=== PATIENT | female | born 1965 | race Caucasian/White ===

== ENCOUNTER 2023-03-24 09:35 | Outpatient (RCR) | payer MEDICARE, OTHER, SELFPAY | END 2023-03-24 23:59 | disposition home or self-care (01) | LOC: RPT 09:35 | PROVIDERS: ATTENDING PHYSICIAN Orthopaedic Surgery; PRIMARYCARE PHYSICIAN Family Medicine | DX: M25.561 Pain in right knee (principal); Z73.6 Limitation of activities due to disability; R26.89 Other abnormalities of gait and mobility | CPT/HCPCS: 97010; 97110; 97140; 97161 ==

== ENCOUNTER 2023-06-20 12:58 | Emergency (ER) | payer MEDICARE, OTHER, SELFPAY ==
[2023-06-20 13:03] VITALS: BP 166/90
--- NOTE | 2023-06-20 14:18 | ED.GENMED ---
History of Present Illness
General
Chief Complaint: Allergic Reaction
Source: patient
Exam Limitations: none
Time Seen by Provider: 06/20/23 14:06
Travel History
Have you had any contact with someone who has COVID-19?: No
Do you have any symptoms of coronavirus? Fever > 100 degrees, chills, cough, shortness of breath, sore throat, loss of taste or smell, muscle aches, or headache?: No
History of Present Illness
History of Present Illness:
See MDM
Past History
Past History
ED Past Medical History: COPD, CVA (TIA), HTN, Hypercholesterolemia, Psychiatric (Anxiety depression) and Other (Anemia)
ED Past Surgical History: Other (cataracts, Dental Implants)
Patient has exhibited threatening behavior?: No
PSI?: No
Social History
Tobacco: Former smoker
Alcohol: None
Drug: None
Personal: Single
Living: alone
Employment: Not employed
Family History
Family History: Other (AndNoncontributory)
Phy Exam
Physical Exam
Physical Exam:
See MDM
Course
Vital Signs
Initial and Last Documented VS:
Initial Vital Signs
Temp Pulse Resp BP Pulse Ox
98.2 F 77 16 166/90 98
06/20/23 13:03 06/20/23 13:03 06/20/23 13:03 06/20/23 13:03 06/20/23 13:03
Last Documented Vital Signs
Temp Pulse Resp BP Pulse Ox
98.2 F 77 16 166/90 98
06/20/23 13:03 06/20/23 13:03 06/20/23 13:03 06/20/23 13:03 06/20/23 13:03
MDM/Problems Addressed
Differential Diagnosis Includes:
HPI and MDM Narrative:
57-year-old female presenting with concern for allergic reaction. 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 The plan is to start famotidine, obtain a breath test and schedule endoscopy. She started famotidine a few days
ago and she started with a generalized itchy rash. Patient stopped famotidine and is concerned she could be having allergic reaction. She denies vomiting or trouble breathing
On exam, patient is well-appearing nontoxic. Posterior pharynx clear. No evidence of angioedema or anaphylaxis. We discussed the possibility of allergic reaction and discussed cessation of famotidine. She will take her Benadryl as needed and
will discuss case with her PCP and reshipping clerk. She denies any other source of allergic reaction such as new soap or detergent
Physical exam
General: Well appearing and non-toxic
HEENT: protecting airway. Posterior pharynx clear
Neck: appears supple
CV: No evidence of cyanosis
Resp: No accessory muscle use
Abd: Non-distended
Extremities: No deformities
Neuro: alert
Psych: Normal affect
Skin: Intact. Mild erythema to back. No urticaria or cellulitis. Plaque psoriasis noted to elbows and knees
Problems Addressed including Acute and Chronic Conditions affecting care:
1. Adverse drug reaction
Acuity: acute
Prognosis: stable
Details: Discussed cessation of famotidine and taking Benadryl as needed. Patient is comfortable with plan
Differential Diagnosis (but not limited to): Allergic reaction, adverse drug reaction, psoriasis
Drug therapy (if applicable): OTC meds, please see d/c instruction regarding Rx drugs
Amount and/or Complexity of Data Reviewed
Clinical info obtained from: Patient
External data reviewed: N/A
Labs I independently reviewed (but not limited to): N/A
Radiology: N/A
Pulse Ox: not hypoxic
EKG independently reviewed: N/A
Plastic Sewer: N/A
Critical Care: N/A
Risk of Complication:
Social Determinants of health: Good social support
Discussed with other providers: N/A
Escalation of Care includes Admit/Obs: After being observed in the Emergency Department, pt stable for discharge.
Occasional wrong word or 'sound a like' substitutions may have occurred due to the inherent limitations of voice recognition software. Read the chart carefully and recognize, using context, where substitutions have occurred.
*Critical Care Note
Total Time (30-74mins, 75-104mins- exclusive of procedures): Not Applicable
ED Attending Note
-
Portions of this chart may have been created with voice recognition software.� Occasional wrong word or��sound alike� substitutions may have occurred due to the inherent limitations of voice recognition software.
Discharge Plan
Departure
Patient Disposition: Home (Routine Discharge)
Date of Disposition: 06/20/23
Time of Disposition: 14:18
Patient with high blood pressure during this ER visit?: Yes
Discharge Problem:
Adverse drug reaction
Instructions: Adverse Drug Reactions, Adult (DC), BLOOD PRESSURE
Prescriptions:
No Action
clonazepam 1 MG tablet
1 mg PO BID PRN (Reason: anxiety)
Patient Comments:
07/27/2022: last filled 07/09/22, 56 tabs for 28 days from [place]
lisinopril 20 mg tablet
20 mg PO HS
olanzapine 10 mg tablet
10 mg PO DAILY
Rx Instructions:
TAKEN W/ 2.5MG = 12.5MG
olanzapine 2.5 mg tablet
2.5 mg PO DAILY
Rx Instructions:
TAKEN W/ 10MG = 12.5MG
acetaminophen 500 mg Tablet
500 mg PO Q6H PRN (Reason: mild pain/fever)
aspirin 81 mg Tablet,Chewable
81 mg PO DAILY 30 Days Qty: 30 0RF
rosuvastatin 40 mg Tablet
40 mg PO HS 30 Days Qty: 30 0RF
clopidogrel 75 mg Tablet
75 mg PO DAILY 18 Days Qty: 18 0RF
Rx Instructions:
Last day of Plavix 08/16
rizatriptan 5 mg tablet,disintegrating
5 mg PO ONCE PRN (Reason: migraine headache) Qty: 10 0RF
Rx Instructions:
may repeat after 2 hours if headache persists. Do not take more than 5 tabs in 1 day
erythromycin 5 mg/gram (0.5 %) ointment
1 applic ophthalmic (eye) DAILY Qty: 3.5 0RF
naproxen sodium 275 mg tablet
275 mg PO BID Qty: 14 0RF
albuterol sulfate 2.5 mg /3 mL (0.083 %) solution for nebulization
2.5 mg inhalation Q4H PRN (Reason: shortness of breath or wheezing) Qty: 180 0RF
penicillin V potassium 500 mg tablet
500 mg PO QID Qty: 40 0RF
Activity Restrictions/Additional Instructions:
Please return for any worsening symptoms.
You may return at any time if you have further concerns.
Please follow up with your doctor at the first available appointment, preferably this week.
Please avoid famotidine until talking to your reshipping clerk.
Thank you for choosing [facility].
Interventions
Interventions:
*Risk Screen - Suicide Last Done: 06/20/23 13:03
*General Assessment Last Done: 06/20/23 13:03
*Neglect/Abuse Screening Last Done: 06/20/23 13:03
ED- Cardiac Assessment Last Done: 06/20/23 14:14
ED- Pulmonary Assessment Last Done: 06/20/23 14:14
ED-Skin Assessment Last Done: 06/20/23 14:14
== END 2023-06-20 14:29 | disposition home or self-care (01) ==
LOC: EMR 12:58
PROVIDERS: EMERGENCY PHYSICIAN Student in an Organized Health Care Education/Training Program; FAMILY PHYSICIAN Family Medicine
DX: L50.0 Allergic urticaria (principal); T47.0X5A Adverse effect of histamine H2-receptor blockers, initial encounter; R03.0 Elevated blood-pressure reading, without diagnosis of hypertension; Z79.82 Long term (current) use of aspirin; Z88.5 Allergy status to narcotic agent; Z88.8 Allergy status to other drugs, medicaments and biological substances
CPT/HCPCS: 99282

== ENCOUNTER 2023-07-11 11:48 | Emergency (ER) | payer MEDICARE, OTHER, SELFPAY ==
[2023-07-11 11:49] VITALS: BP 144/84
--- NOTE | 2023-07-11 13:53 | ED.GENMED ---
History of Present Illness
General
Chief Complaint: Eye Problems
Source: patient
Time Seen by Provider: 07/11/23 13:37
Travel History
Have you had any contact with someone who has COVID-19?: No
Do you have any symptoms of coronavirus? Fever > 100 degrees, chills, cough, shortness of breath, sore throat, loss of taste or smell, muscle aches, or headache?: No
History of Present Illness
History of Present Illness:
57-year-old female presenting the emergency department for evaluation after awakening around 9:00 with foreign body sensation in her right eye. Patient notes that she has a history of corneal abrasion/ulcerations but she is unable to tell me as to
how she got these as she denies any glasses or contact lens use or any trauma to the eye. She states she was at work yesterday but did not get any substances in her eye. Patient denies any visual disturbances, blurred vision or double vision. She
also is denying any headaches, vomiting or any other concerns.
Past History
Past History
ED Past Medical History: COPD, CVA (TIA), HTN, Hypercholesterolemia, Psychiatric (Anxiety depression) and Other (Anemia)
ED Past Surgical History: Other (cataracts, Dental Implants)
Patient has exhibited threatening behavior?: No
PSI?: No
Social History
Tobacco: Former smoker
Alcohol: None
Drug: None
Personal: Single
Living: alone
Employment: Not employed
Family History
Family History: Other (AndNoncontributory)
Review of Systems
Review of Systems
All Other Systems: ROS reviewed and negative except as documented in HPI and ROS
Phy Exam
Physical Exam
Physical Exam:
GENERAL: Alert , in no apparent distress
EYE: conjunctiva clear, no periorbital edema or ecchymosis or signs of trauma, EOMI, PERRL
Fluorescein stain: Very small uptake 12 o'clock position just above the iris but without foreign body
Tonometry measurements affected right eye measured 21: Unaffected left eye measured 26
Visual acuity: Right eye 20/30, left eye 20/30, both eyes 20/30
Head: Normocephalic atraumatic
NECK: Supple,
ENT: mmm.
LUNGS: no acute respiratory distress
NEUROLOGICAL: Alert and oriented
SKIN: Warm and dry, skin intact.
MUSCULOSKELETAL: well perfused.
PSYCH: Normal and appropriate interaction.
Scores
Heart Failure Risk
Heart Failure Risk Score: Not Applicable
Heart Score for Chest Pain Patients
STEMI patient?: Not applicable
Withdrawal Assessment of Alcohol
Withdrawal Assessment Completed?: Not applicable
Course
Vital Signs
Initial and Last Documented VS:
Initial Vital Signs
Temp Pulse Resp BP Pulse Ox
98.2 F 67 18 144/84 96
07/11/23 11:49 07/11/23 11:49 07/11/23 11:49 07/11/23 11:49 07/11/23 11:49
Last Documented Vital Signs
Temp Pulse Resp BP Pulse Ox
98.2 F 67 18 144/84 96
07/11/23 11:49 07/11/23 11:49 07/11/23 11:49 07/11/23 11:49 07/11/23 11:49
MDM/Problems Addressed
Differential Diagnosis Includes:
Corneal abrasion, corneal ulceration, foreign body, glaucoma, iritis
MDM/Problems Addressed:
57-year-old female presenting emergency department for evaluation of left eye pain and foreign body sensation. Exam is most consistent with a corneal abrasion. Will treat with a topical antibiotic drop. 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 She is aware of her questions emergency department. Stable for discharge home.
*Pulse Oximetry
Patient hypoxic: no
*Critical Care Note
Total Time (30-74mins, 75-104mins- exclusive of procedures): Not Applicable
ED Attending Note
-
Portions of this chart may have been created with voice recognition software.� Occasional wrong word or��sound alike� substitutions may have occurred due to the inherent limitations of voice recognition software.
Discharge Plan
Departure
Patient Disposition: Home (Routine Discharge)
Date of Disposition: 07/11/23
Time of Disposition: 13:53
Patient with high blood pressure during this ER visit?: Yes
Discharge Problem:
Injury of conjunctiva and corneal abrasion of right eye w/o FB
Instructions: Corneal Abrasion (DC)
Prescriptions:
New
ofloxacin 0.3 % drops
2 drp ophthalmic (eye) QID 7 Days Qty: 5 0RF
No Action
clonazepam 1 MG tablet
1 mg PO BID PRN (Reason: anxiety)
Patient Comments:
07/27/2022: last filled 07/09/22, 56 tabs for 28 days from [email or web address]
lisinopril 20 mg tablet
20 mg PO HS
olanzapine 10 mg tablet
10 mg PO DAILY
Rx Instructions:
TAKEN W/ 2.5MG = 12.5MG
olanzapine 2.5 mg tablet
2.5 mg PO DAILY
Rx Instructions:
TAKEN W/ 10MG = 12.5MG
acetaminophen 500 mg Tablet
500 mg PO Q6H PRN (Reason: mild pain/fever)
aspirin 81 mg Tablet,Chewable
81 mg PO DAILY 30 Days Qty: 30 0RF
rosuvastatin 40 mg Tablet
40 mg PO HS 30 Days Qty: 30 0RF
clopidogrel 75 mg Tablet
75 mg PO DAILY 18 Days Qty: 18 0RF
Rx Instructions:
Last day of Plavix 08/16
rizatriptan 5 mg tablet,disintegrating
5 mg PO ONCE PRN (Reason: migraine headache) Qty: 10 0RF
Rx Instructions:
may repeat after 2 hours if headache persists. Do not take more than 5 tabs in 1 day
erythromycin 5 mg/gram (0.5 %) ointment
1 applic ophthalmic (eye) DAILY Qty: 3.5 0RF
naproxen sodium 275 mg tablet
275 mg PO BID Qty: 14 0RF
albuterol sulfate 2.5 mg /3 mL (0.083 %) solution for nebulization
2.5 mg inhalation Q4H PRN (Reason: shortness of breath or wheezing) Qty: 180 0RF
penicillin V potassium 500 mg tablet
500 mg PO QID Qty: 40 0RF
Referrals:
Chato Hilario DO [Family Provider] -
Interventions
Interventions:
*ED COVID-19 Vaccine History Last Done: 07/11/23 11:49
*Nursing Disposition Last Done: 07/11/23 13:59
Discharge Date and Time
Discharge Date/Time: 07/11/23 14:00
Print Language: COLOMBIAN
== END 2023-07-11 14:00 | disposition home or self-care (01) ==
LOC: EMR 11:48
PROVIDERS: EMERGENCY PHYSICIAN Emergency Medicine; FAMILY PHYSICIAN Family Medicine
DX: S05.01XA Injury of conjunctiva and corneal abrasion without foreign body, right eye, initial encounter (principal); X58.XXXA Exposure to other specified factors, initial encounter; R09.A9 Foreign body sensation, other site; J44.9 Chronic obstructive pulmonary disease, unspecified; I10 Essential (primary) hypertension; E78.00 Pure hypercholesterolemia, unspecified; F41.9 Anxiety disorder, unspecified; Z86.73 Personal history of transient ischemic attack (TIA), and cerebral infarction without residual deficits; Z87.891 Personal history of nicotine dependence
CPT/HCPCS: 99282

== ENCOUNTER 2023-08-20 13:00 | Emergency (ER) | payer MEDICARE, OTHER, SELFPAY ==
[2023-08-20 13:04] VITALS: BP 167/94
--- NOTE | 2023-08-20 13:54 | ED.GENMED ---
History of Present Illness
General
Chief Complaint: Skin Problem
Source: patient
Exam Limitations: none
Time Seen by Provider: 08/20/23 13:36
Nursing documentation reviewed up to this point in time: agreed with
Travel History
Have you had any contact with someone who has COVID-19?: No
Do you have any symptoms of coronavirus? Fever > 100 degrees, chills, cough, shortness of breath, sore throat, loss of taste or smell, muscle aches, or headache?: No
History of Present Illness
History of Present Illness:
pt is a 57 y/o F with h/o COPD, HTN,HLD
here after she says she had an 'age spot' treated with liquid nitrogen 3 days ago and it got dark and doubled in size and she is concerned that this is a bad raection to the treatment. she called the office and was given a follow up in a few days
but pt amado anxious about it
she doesn't like the way it looks
Past History
Past History
ED Past Medical History: COPD, CVA (TIA), HTN, Hypercholesterolemia, Psychiatric (Anxiety depression) and Other (Anemia)
ED Past Surgical History: Other (cataracts, Dental Implants)
Patient has exhibited threatening behavior?: No
PSI?: No
Social History
Tobacco: Former smoker
Alcohol: None
Drug: None
Personal: Single
Living: alone
Employment: Not employed
Family History
Family History: Other (AndNoncontributory)
Review of Systems
Review of Systems
Allergies reviewed?: Yes
All Other Systems: Not applicable
Phy Exam
Physical Exam
Physical Exam:
GENERAL: Alert , in no apparent distress, anxious
EYE: pupils equal and reactive
ENT: o/p clr, mmm.
SKIN: Warm and dry, skin intact.
pt has about 4x5mm raised plaque/like lesion hyperpigmented with minimal surroudning trace pink ring that is c/w previoulsy treated cryotherapy spot; to right zygomatic reionn
PSYCH cooperative, no SI., anxious
Course
Vital Signs
Initial and Last Documented VS:
Initial Vital Signs
Temp Pulse Resp BP Pulse Ox
99.0 F 67 18 167/94 98
08/20/23 13:04 08/20/23 13:04 08/20/23 13:04 08/20/23 13:04 08/20/23 13:04
Last Documented Vital Signs
Temp Pulse Resp BP Pulse Ox
99.0 F 67 18 167/94 98
08/20/23 13:04 08/20/23 13:04 08/20/23 13:04 08/20/23 13:04 08/20/23 13:04
MDM/Problems Addressed
Differential Diagnosis Includes:
cryotherapy, skin lesion
MDM/Problems Addressed:
57 y/o F with a skin lesion that was trated with liquid nitrogen, here becuase the area is raised, dark and looks worse than pre-treatment
she has reached out to derm and was told to put aquaphor on it and has appt for next week but sh eis concerned because 'it is an eye sore'
she was not sure if this is the appropriate response to the cryotherapy
pt was reassured that there usually is a blood blister that forms and then falls off
d/c home
no signs of infection
no signs of ulceration
*Critical Care Note
Total Time (30-74mins, 75-104mins- exclusive of procedures): Not Applicable
ED Attending Note
-
Portions of this chart may have been created with voice recognition software.� Occasional wrong word or��sound alike� substitutions may have occurred due to the inherent limitations of voice recognition software.
Discharge Plan
Departure
Patient Disposition: Home (Routine Discharge)
Date of Disposition: 08/20/23
Time of Disposition: 13:58
Patient with high blood pressure during this ER visit?: Yes
Condition: Fair
Covid-19: Not Applicable
Discharge Problem:
Skin lesion
Instructions: Wound Care (DC), BLOOD PRESSURE
Prescriptions:
No Action
clonazepam 1 MG tablet
1 mg PO BID PRN (Reason: anxiety)
Patient Comments:
07/27/2022: last filled 07/09/22, 56 tabs for 28 days from [place]
lisinopril 20 mg tablet
20 mg PO HS
olanzapine 10 mg tablet
10 mg PO DAILY
Rx Instructions:
TAKEN W/ 2.5MG = 12.5MG
olanzapine 2.5 mg tablet
2.5 mg PO DAILY
Rx Instructions:
TAKEN W/ 10MG = 12.5MG
acetaminophen 500 mg Tablet
500 mg PO Q6H PRN (Reason: mild pain/fever)
aspirin 81 mg Tablet,Chewable
81 mg PO DAILY 30 Days Qty: 30 0RF
rosuvastatin 40 mg Tablet
40 mg PO HS 30 Days Qty: 30 0RF
clopidogrel 75 mg Tablet
75 mg PO DAILY 18 Days Qty: 18 0RF
Rx Instructions:
Last day of Plavix 08/16
rizatriptan 5 mg tablet,disintegrating
5 mg PO ONCE PRN (Reason: migraine headache) Qty: 10 0RF
Rx Instructions:
may repeat after 2 hours if headache persists. Do not take more than 5 tabs in 1 day
erythromycin 5 mg/gram (0.5 %) ointment
1 applic ophthalmic (eye) DAILY Qty: 3.5 0RF
naproxen sodium 275 mg tablet
275 mg PO BID Qty: 14 0RF
albuterol sulfate 2.5 mg /3 mL (0.083 %) solution for nebulization
2.5 mg inhalation Q4H PRN (Reason: shortness of breath or wheezing) Qty: 180 0RF
penicillin V potassium 500 mg tablet
500 mg PO QID Qty: 40 0RF
ofloxacin 0.3 % drops
2 drp ophthalmic (eye) QID 7 Days Qty: 5 0RF
Referrals:
Chato Hilario, DO [Family Provider] -
Activity Restrictions/Additional Instructions:
THE SKIN SPOT THAT WAS TREATED WITH LIQUID NITROGEN APPEARS TO HAVE HAD SOME DARKENING/BRUISING WHICH IS TYPICAL FOR A FEW DAYS POST-FREEZING
YOU SHOULD FOLLOW UP WITH THE FINANCIAL SALES PROFESSIONAL
RETURN FO RANY CONCERNS.
Interventions
Interventions:
*Risk Screen - Suicide Last Done: 08/20/23 14:11
*General Assessment Last Done: 08/20/23 13:04
*Neglect/Abuse Screening Last Done: 08/20/23 14:11
ED- Fall Risk Assessment Last Done: 08/20/23 14:11
*ED COVID-19 Vaccine History Last Done: 08/20/23 13:04
*Nursing Disposition Last Done: 08/20/23 14:11
ED-Skin Assessment Last Done: 08/20/23 14:10
Discharge Date and Time
Discharge Date/Time: 08/20/23 14:11
Print Language: SOUTH AFR[place]
== END 2023-08-20 14:11 | disposition home or self-care (01) ==
LOC: EMR 13:00
PROVIDERS: EMERGENCY PHYSICIAN Emergency Medicine; FAMILY PHYSICIAN Family Medicine
DX: L98.9 Disorder of the skin and subcutaneous tissue, unspecified (principal); I10 Essential (primary) hypertension; J44.9 Chronic obstructive pulmonary disease, unspecified; E78.00 Pure hypercholesterolemia, unspecified; Z87.891 Personal history of nicotine dependence
CPT/HCPCS: 99282

== ENCOUNTER 2023-09-19 11:50 | Emergency (ER) | payer MEDICARE, OTHER, SELFPAY ==
[2023-09-19 12:00] VITALS: BP 134/86
[2023-09-19 12:23] VITALS: BMI 30.9
--- NOTE | 2023-09-19 12:55 | ED.MUSCINJ ---
HPI-Injury
General
Chief Complaint: Musculo-Skeletal Complaint
Source: patient
Exam Limitations: none
Time Seen by Provider: 09/19/23 12:43
Nursing documentation reviewed up to this point in time: agreed with
History of Present Illness-Injury
Is this injury a work related problem?: No
Is pt an associate of [facility]/[place]?: No
Initial Injury comments:
Patient to ED with complaint of right posterior chest pain. Started 2 weeks ago and is not improving. Denies fever/chills, n/v/d. No SOB or cough. No prior history of same. Symptoms started approx 1 week after starting weygovy for weight loss
Past History
Past History
ED Past Medical History: COPD, CVA (TIA), HTN, Hypercholesterolemia, Psychiatric (Anxiety depression) and Other (Anemia)
ED Past Surgical History: Other (cataracts, Dental Implants)
Patient has exhibited threatening behavior?: No
PSI?: No
Social History
Tobacco: Former smoker
Alcohol: None
Drug: None
Personal: Single
Living: alone
Employment: Not employed
Family History
Family History: Other (AndNoncontributory)
Review of Systems
Review of Systems
Allergies reviewed?: Yes
All Other Systems: ROS reviewed and negative except as documented in HPI and ROS
Constitutional: Reports no symptoms
EENT: Reports no symptoms
Respiratory: Reports no symptoms
Cardiac: Reports no symptoms
ABD/GI: Reports anorexia
: Reports no symptoms
Musculoskeletal: Reports other (right posterior chest pain)
Skin: Reports no symptoms
Neurological: Reports no symptoms
Psychiatric: Reports no symptoms
Musculoskeletal Injury Exam
Musculoskeletal Injury Exam
Right Upper Back:
Pain with Movement?: None
Tender to palpation?: Moderate
Soft tissue swelling?: None
External deformity and angulation?: None
Joint effusion?: None
Contusion?: None
Hematoma-local bleeding into tissue?: None
Crepitus with movement?: No
Joint instability?: No
Malalignment/deformity?: No
Range of motion: Full
Distal skin color and temperature: normal-warm & good color
Capillary Refill: normal
Normal distal neurovascular exam?: Yes
Phy Exam
General Physical Exam
General Presentation: well appearing and no apparent distress
General age: appears stated age
General Skin: warm and dry
General Habitus: normal
General Mental: alert
Cardiovascular Exam
Cardiovascular Exam: regular rate/rhythm and no edema
Pulmonary Exam
Pulmonary Exam: lungs clear and no respiratory distress
Gastrointestinal Exam
Gastrointestinal Exam: normal bowel sounds, soft, no organomegaly, non distended and no cva tenderness
Palpation: left upper quadrant: No tenderness, left lower quadrant: No tenderness, right upper quadrant: Minimal tenderness and right lower quadrant: No tenderness
Musculoskeletal Exam
Musculoskeletal Exam: full ROM and neuro vasc intact
Skin Exam
Skin Exam: normal color, warm/dry and no rash
Psychiatric Exam
Psychiatric Exam: normal mood/affect
Injury Course
Orders/Labs/Results
Orders:
Orders
09/19/23 12:53
US Abdomen Complete/Upper Urgent
Comment:
Reason For Exam: right upper abd. back pain
09/19/23 12:54
CR Chest - 2 Views Urgent
Comment:
Reason For Exam: right posterior chest pain
09/19/23 13:02
Complete Blood Count/With Diff Urgent
Comprehensive Metabolic Panel Urgent
D-Dimer Urgent
Lipase Urgent
Abnormal Lab Results
09/19/23
13:02
MCH 32.4 H pg
(27.0-31.0)
MPV 10.7 H fL
(7.4-10.4)
D-Dimer 0.53 H ug/mlFEU
(0.00-0.50)
BUN 19 H mg/dl
(7-17)
Lipase 482 H U/L
(23-300)
09/19/23 13:02
09/19/23 13:02
*Radiology
Radiology exam reviewed: radiology read reviewed
*Pulse Oximetry
Patient hypoxic: no
*EKG
Interpretation: normal
Rate: normal
Rhythm: sinus
*Critical Care Note
Total Time (30-74mins, 75-104mins- exclusive of procedures): Not Applicable
Update Note
Update Note:
Patient to ED iwth complaint of 2week history of right upper back pain. Labs reviewed. DDImer .53. Normal results with age adjustment. All other labs acceptable. US normal. Will treat as muscular. Dhe is discharged home, will follow up with
PCP in AM
ED Attending Note
-
Portions of this chart may have been created with voice recognition software.� Occasional wrong word or��sound alike� substitutions may have occurred due to the inherent limitations of voice recognition software.
Discharge Plan
Departure
Patient Disposition: Home (Routine Discharge)
Date of Disposition: 09/19/23
Time of Disposition: 15:22
Patient with high blood pressure during this ER visit?: No
Condition: Good
Covid-19: Not Applicable
Discharge Problem:
Pain, upper back
Instructions: Ibuprofen, Using Cold for Pain, Musculoskeletal Pain
Prescriptions:
New
hydrocodone-acetaminophen 5-325 mg tablet
1 tab PO Q4H PRN (Reason: Pain) Qty: 10 0RF
No Action
clonazepam 1 MG tablet
1 mg PO BID PRN (Reason: anxiety)
Patient Comments:
07/27/2022: last filled 07/09/22, 56 tabs for 28 days from [place]
lisinopril 20 mg tablet
20 mg PO HS
olanzapine 10 mg tablet
10 mg PO DAILY
Rx Instructions:
TAKEN W/ 2.5MG = 12.5MG
olanzapine 2.5 mg tablet
2.5 mg PO DAILY
Rx Instructions:
TAKEN W/ 10MG = 12.5MG
acetaminophen 500 mg Tablet
500 mg PO Q6H PRN (Reason: mild pain/fever)
aspirin 81 mg Tablet,Chewable
81 mg PO DAILY 30 Days Qty: 30 0RF
rosuvastatin 40 mg Tablet
40 mg PO HS 30 Days Qty: 30 0RF
clopidogrel 75 mg Tablet
75 mg PO DAILY 18 Days Qty: 18 0RF
Rx Instructions:
Last day of Plavix 08/16
rizatriptan 5 mg tablet,disintegrating
5 mg PO ONCE PRN (Reason: migraine headache) Qty: 10 0RF
Rx Instructions:
may repeat after 2 hours if headache persists. Do not take more than 5 tabs in 1 day
erythromycin 5 mg/gram (0.5 %) ointment
1 applic ophthalmic (eye) DAILY Qty: 3.5 0RF
naproxen sodium 275 mg tablet
275 mg PO BID Qty: 14 0RF
albuterol sulfate 2.5 mg /3 mL (0.083 %) solution for nebulization
2.5 mg inhalation Q4H PRN (Reason: shortness of breath or wheezing) Qty: 180 0RF
penicillin V potassium 500 mg tablet
500 mg PO QID Qty: 40 0RF
ofloxacin 0.3 % drops
2 drp ophthalmic (eye) QID 7 Days Qty: 5 0RF
Referrals:
Chato Hilario DO [Family Provider] - Follow up in 2-3 days
Interventions
Interventions:
*Risk Screen - Suicide Last Done: 09/19/23 12:23
*General Assessment Last Done: 09/19/23 15:32
*Neglect/Abuse Screening Last Done: 09/19/23 12:23
ED- Fall Risk Assessment Last Done: 09/19/23 12:23
*ED COVID-19 Vaccine History Last Done: 09/19/23 12:23
*Nursing Disposition Last Done: 09/19/23 15:32
ED-Musculoskeletal Assessment Last Done: 09/19/23 12:23
Discharge Date and Time
Discharge Date/Time: 09/19/23 15:33
Print Language: IRISH
[2023-09-19 13:15] LABS: % Basophils 0.3 % (0-2); % Eosinophils 1.3 % (0-6); % Immature Granulocytes 0.1 % (0-0.5); % Lymphocytes 25.3 % (20.5-51.1); % Monocytes 4.8 % (1.7-9.3); % Neutrophils 68.2 % (42.2-75.2); Absolute Eosinophils 0.1 10^3/uL (0-0.7); Absolute Lymphocytes 2.2 10^3/uL (1.2-3.4); Absolute Monocytes 0.4 10^3/uL (0.1-0.6); Absolute Neutrophils 5.9 10^3/uL (1.4-6.5); Hemoglobin 14.4 g/dL (12.0-16.0); Mean Corpuscular Hgb 32.4 pg (27.0-31.0); Mean Corpuscular Volume 89.9 fL (81.0-99.0); Mean Platelet Volume 10.7 fL (7.4-10.4); Nucleated Red Blood Cells % 0 %; Platelet Count 223 10^3/uL (130-400); Red Blood Cell Count 4.45 10^6/uL (4.20-5.40); Red Cell Dist. Width 12.3 % (11.5-14.5); White Blood Cell Count 8.6 10^3/uL (4.8-10.8)
[2023-09-19 13:29] LABS: D-Dimer 0.53 ug/mlFEU (0.00-0.50)
[2023-09-19 13:34] LABS: ALT (SGPT) 35 U/L (0-35); AST (SGOT) 26 U/L (14-36); Alkaline Phosphatase 106 U/L (38-126); Blood Urea Nitrogen 19 mg/dl (7-17); Calcium 10.1 mg/dl (8.4-10.2); Carbon Dioxide 26 mmol/L (22-30); Chloride 107 mmol/L (98-107); Estimated Creatinine Clearance 79 ml/min; Glucose 93 mg/dl (70-99); Lipase 482 U/L (23-300); Potassium 4.6 mmol/L (3.5-5.1); Sodium 143 mmol/L (135-145); Total Bilirubin 0.5 mg/dl (0.2-1.3); Total Protein 7.7 g/dl (6.3-8.2); eGFR > 60.00
[2023-09-19 14:27] LABS: Albumin 4.7 g/dl (3.5-5.0)
[2023-09-19 15:31] VITALS: BP 130/80
== END 2023-09-19 15:33 | disposition home or self-care (01) ==
LOC: EMR 11:50
PROVIDERS: Nurse Practitioner; EMERGENCY PHYSICIAN Emergency Medicine; FAMILY PHYSICIAN Family Medicine
DX: M54.6 Pain in thoracic spine (principal); J44.9 Chronic obstructive pulmonary disease, unspecified; I10 Essential (primary) hypertension; E78.00 Pure hypercholesterolemia, unspecified; F41.8 Other specified anxiety disorders; D64.9 Anemia, unspecified; Z86.73 Personal history of transient ischemic attack (TIA), and cerebral infarction without residual deficits; Z87.891 Personal history of nicotine dependence
CPT/HCPCS: 99284; 71046; 76700; 80053; 83690; 85025; 85379

== ENCOUNTER 2023-09-27 07:20 | Emergency (ER) | payer MEDICARE, OTHER, SELFPAY ==
[2023-09-27 07:30] VITALS: BP 131/88
[2023-09-27 08:00] VITALS: BMI 35.2
--- NOTE | 2023-09-27 08:16 | ED.GENMED ---
History of Present Illness
General
Chief Complaint: Chest Pain
Source: patient
Exam Limitations: none
Time Seen by Provider: 09/27/23 08:06
History of Present Illness
History of Present Illness:
57-year-old female presents with ongoing left chest discomfort. This is been bothering her for 3 days. Its under her left breast. It is a constant ache. Today was worse than usual so she came in. She is under a lot of stress lately. She is
going through some medication changes with her Zyprexa. She thinks her discomfort is stress related however she does note that her brother is just a year or 2 older and her recently had a heart attack. She is followed by cardiology here. She also
notes that her urine smelled somewhat different today. No dysuria or hematuria. No other complaints at this time. Pain is minimal at this time.
Past History
Past History
ED Past Medical History: COPD, CVA (TIA), HTN, Hypercholesterolemia, Psychiatric (Anxiety depression) and Other (Anemia)
ED Past Surgical History: Other (cataracts, Dental Implants)
Patient has exhibited threatening behavior?: No
PSI?: No
Social History
Tobacco: Former smoker
Alcohol: None
Drug: None
Personal: Single
Living: alone
Employment: Not employed
Family History
Family History: Other (AndNoncontributory)
Phy Exam
Physical Exam
Physical Exam:
General: Well-appearing male no acute respiratory distress
HEENT: Normocephalic atraumatic heart: Regular rate and rhythm no murmurs
Lungs: Clear no wheeze or rales
Extremities: No cyanosis or edema skin: Warm no rash
Scores
Heart Score for Chest Pain Patients
STEMI patient?: No
History: Slightly or Non-Suspicious
ECG: Normal
Age: >45 - <65 years
Risk Factors: 1 or 2 Risk Factors
Troponin: </= Normal Limit
Heart Score for Chest Pain Patients: 2
Heart Score Risk: 2.5% MACE over next 6 weeks
Course
Orders/Labs/Results
Orders:
Orders
09/27/23 07:22
ECG [Electrocardiogram (*1)] Urgent
Reason for Study: Chest Pain
09/27/23 07:23
EKG- Treatment ONCE
09/27/23 08:03
CMP [Comprehensive Metabolic Panel] Urgent
Complete Blood Count/With Diff Urgent
Troponin I Urgent
09/27/23 08:15
Urinalysis Reflex To Culture Urgent
Abnormal Lab Results
09/27/23
08:03
MCH 31.9 H pg
(27.0-31.0)
MPV 10.8 H fL
(7.4-10.4)
09/27/23 08:03
09/27/23 08:03
Vital Signs
Initial and Last Documented VS:
Initial Vital Signs
Temp Pulse Resp BP Pulse Ox
98.2 F 96 18 131/88 96
09/27/23 07:30 09/27/23 07:30 09/27/23 07:30 09/27/23 07:30 09/27/23 07:30
Last Documented Vital Signs
Temp Pulse Resp BP Pulse Ox
98.2 F 96 18 131/88 96
09/27/23 07:30 09/27/23 07:30 09/27/23 07:30 09/27/23 07:30 09/27/23 07:30
MDM/Problems Addressed
Differential Diagnosis Includes:
Chest discomfort ongoing. Consider ACS. She was here about a month ago which I reviewed the records from. She had a D-dimer which was within normal limits for age-adjusted range. Do not suspect PE as patient has normal vital signs and pain is
not pleuritic.
Troponin pending. EKG urinalysis pending
EKG shows sinus rhythm with a rate of 71
*Critical Care Note
Total Time (30-74mins, 75-104mins- exclusive of procedures): Not Applicable
Update Note
Update Note:
Workup here negative with troponin undetectable. Patient resting comfortably. Patient unable to provide urine sample. She also she has to leave the emergency room for an appointment she has not let up EVALI for potential medication change. I
think this is important for her moving forward. No indication for admission to hospital but given family history of cardiac disease and chest pain presentation, will refer to chest pain hotline. Symptoms have been going on for several days. 1
troponin is sufficient with atypical presentation. No need for repeat troponin at this time
ED Attending Note
-
Portions of this chart may have been created with voice recognition software.� Occasional wrong word or��sound alike� substitutions may have occurred due to the inherent limitations of voice recognition software.
Discharge Plan
Departure
Patient Disposition: Home (Routine Discharge)
Date of Disposition: 09/27/23
Time of Disposition: 08:53
Patient with high blood pressure during this ER visit?: No
Discharge Problem:
Chest pain
Instructions: Chest Pain CBC Follow Up
Prescriptions:
No Action
clonazepam 1 mg Tablet
1 mg PO BID PRN (Reason: anxiety)
Patient Comments:
09/27/2023, pt. took 3 tablets yesterday but it is normally BIDPRN.
Aquaphor Ointment
1 applic TOPICAL HSPRN PRN (Reason: B/L knees and elbows)
acetaminophen [Tylenol Extra Strength] 500 mg Tablet
1,000 mg PO DAILYPRN PRN (Reason: mild pain)
docusate sodium [Colace] 100 mg Capsule
100 mg PO DAILY PRN (Reason: constipation)
olanzapine 15 mg Tablet
15 mg PO DAILY
lisinopril 40 mg Tablet
40 mg PO HS
Patient Comments:
09/27/2023, pharmacy records have pt. filling 20 mg but [facility] records from 04/21/2023 have pt. taking 40 mg. Pt. states to be taking 40 mg. Pt. filled 20 mg on 07/12/2023 for 90-day supply.
rosuvastatin 40 mg Tablet
40 mg PO HS
melatonin 1 mg Tablet
1 mg PO HS PRN (Reason: sleep)
Wegovy 0.5 mg/0.5 mL Pen Injector
0.5 mg SC WE@0800
Referrals:
Chato Hilario, [Family Provider] -
Activity Restrictions/Additional Instructions:
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
Interventions
Interventions:
*Risk Screen - Suicide Last Done: 09/27/23 07:30
*General Assessment Last Done: 09/27/23 07:30
*Neglect/Abuse Screening Last Done: 09/27/23 07:30
Discharge Date and Time
Print Language: MEXICAN
[2023-09-27 08:21] LABS: % Basophils 0.5 % (0-2); % Immature Granulocytes 0.4 % (0-0.5); % Lymphocytes 27.1 % (20.5-51.1); % Monocytes 7.2 % (1.7-9.3); % Neutrophils 62.8 % (42.2-75.2); Absolute Eosinophils 0.2 10^3/uL (0-0.7); Absolute Lymphocytes 2.3 10^3/uL (1.2-3.4); Absolute Monocytes 0.6 10^3/uL (0.1-0.6); Absolute Neutrophils 5.4 10^3/uL (1.4-6.5); Hematocrit 39.2 % (37.0-47.0); Hemoglobin 13.6 g/dL (12.0-16.0); Mean Corp Hgb Conc. 34.7 g/dL (33.0-37.0); Mean Corpuscular Hgb 31.9 pg (27.0-31.0); Mean Corpuscular Volume 91.8 fL (81.0-99.0); Mean Platelet Volume 10.8 fL (7.4-10.4); Nucleated Red Blood Cells % 0 %; Platelet Count 207 10^3/uL (130-400); Red Blood Cell Count 4.27 10^6/uL (4.20-5.40); Red Cell Dist. Width 11.9 % (11.5-14.5); White Blood Cell Count 8.5 10^3/uL (4.8-10.8)
[2023-09-27 08:35] LABS: ALT (SGPT) 29 U/L (0-35); AST (SGOT) 22 U/L (14-36); Albumin 4.4 g/dl (3.5-5.0); Alkaline Phosphatase 96 U/L (38-126); Blood Urea Nitrogen 15 mg/dl (7-17); Calcium 9.8 mg/dl (8.4-10.2); Carbon Dioxide 28 mmol/L (22-30); Chloride 107 mmol/L (98-107); Estimated Creatinine Clearance 85 ml/min; Glucose 86 mg/dl (70-99); Potassium 3.9 mmol/L (3.5-5.1); Sodium 142 mmol/L (135-145); Total Bilirubin 0.4 mg/dl (0.2-1.3); eGFR > 60.00
[2023-09-27 08:47] LABS: Troponin I < 0.012 ng/ml
== END 2023-09-27 09:07 | disposition home or self-care (01) ==
LOC: EMR 07:20
PROVIDERS: EMERGENCY PHYSICIAN Emergency Medicine; FAMILY PHYSICIAN Family Medicine
DX: R07.89 Other chest pain (principal); Z73.3 Stress, not elsewhere classified; I10 Essential (primary) hypertension; E78.00 Pure hypercholesterolemia, unspecified; J44.9 Chronic obstructive pulmonary disease, unspecified; F41.9 Anxiety disorder, unspecified; F32.A Depression, unspecified; D64.9 Anemia, unspecified; Z87.891 Personal history of nicotine dependence; Z86.73 Personal history of transient ischemic attack (TIA), and cerebral infarction without residual deficits; Z82.49 Family history of ischemic heart disease and other diseases of the circulatory system; Z88.5 Allergy status to narcotic agent; Z88.8 Allergy status to other drugs, medicaments and biological substances
CPT/HCPCS: 99283; 80053; 84484; 85025; 93005

== ENCOUNTER → 2023-10-07 06:35 | Outpatient (REF) | payer MEDICARE, OTHER, SELFPAY ==
[2023-10-07 07:42] LABS: % Basophils 0.7 % (0-2); % Eosinophils 2.9 % (0-6); % Immature Granulocytes 0.3 % (0-0.5); % Lymphocytes 28.9 % (20.5-51.1); % Monocytes 6.9 % (1.7-9.3); % Neutrophils 60.3 % (42.2-75.2); Absolute Basophils 0.1 10^3/uL (0-0.2); Absolute Eosinophils 0.2 10^3/uL (0-0.7); Absolute Lymphocytes 2.2 10^3/uL (1.2-3.4); Absolute Monocytes 0.5 10^3/uL (0.1-0.6); Absolute Neutrophils 4.6 10^3/uL (1.4-6.5); Hematocrit 39.2 % (37.0-47.0); Hemoglobin 13.9 g/dL (12.0-16.0); Mean Corp Hgb Conc. 35.5 g/dL (33.0-37.0); Mean Corpuscular Hgb 32.9 pg (27.0-31.0); Mean Corpuscular Volume 92.9 fL (81.0-99.0); Mean Platelet Volume 11.3 fL (7.4-10.4); Nucleated Red Blood Cells % 0 %; Platelet Count 201 10^3/uL (130-400); Red Blood Cell Count 4.22 10^6/uL (4.20-5.40); Red Cell Dist. Width 12.2 % (11.5-14.5); White Blood Cell Count 7.7 10^3/uL (4.8-10.8)
[2023-10-07 08:03] LABS: Urine Albumin Negative (Neg - Trace); Urine Bilirubin Negative (Negative); Urine Character Clear (Clear); Urine Color Yellow; Urine Glucose Negative (Negative); Urine Ketone Negative (Negative); Urine Leukocyte 1+ (Negative); Urine Nitrite Negative (Negative); Urine Occult Blood Negative (Negative); Urine Urobilinogen Negative (Neg - 1+)
[2023-10-07 08:12] LABS: ALT (SGPT) 31 U/L (0-35); AST (SGOT) 22 U/L (14-36); Albumin 4.3 g/dl (3.5-5.0); Alkaline Phosphatase 90 U/L (38-126); Amylase 68 U/L (30-110); Blood Urea Nitrogen 13 mg/dl (7-17); Calcium 9.6 mg/dl (8.4-10.2); Carbon Dioxide 28 mmol/L (22-30); Chloride 105 mmol/L (98-107); Glucose 86 mg/dl (70-99); HDL Cholesterol 48 mg/dl; LDL Cholesterol, Calculated 99 mg/dl; Lipase 82 U/L (23-300); Sodium 141 mmol/L (135-145); Total Bilirubin 0.5 mg/dl (0.2-1.3); Total Cholesterol 164 mg/dl (50-199); Total Protein 6.7 g/dl (6.3-8.2); Triglyceride 85 mg/dl (10-149); Very Low Density Lipoprotein 17 mg/dl (0-30); eGFR > 60.00
[2023-10-07 08:53] LABS: TSH 1.07 uIU/ml (0.47-4.68)
[2023-10-07 10:50] LABS: Glycohemoglobin (HgbA1c) 5.2 % (4.0-5.6)
[2023-10-07 11:51] LABS: Urine Squamous Cell >30 /LPF (Few)
[2023-10-07 11:53] LABS: Urine Red Blood Cell 0-2 /HPF (0-2); Urine White Cell 21-25 /HPF (0-5)
== END ==
LOC: WDC 06:35
PROVIDERS: ATTENDING PHYSICIAN Nurse Practitioner Family
DX: Z12.31 Encounter for screening mammogram for malignant neoplasm of breast (principal); I10 Essential (primary) hypertension; E78.2 Mixed hyperlipidemia; R73.01 Impaired fasting glucose; R10.13 Epigastric pain; R53.83 Other fatigue; E03.9 Hypothyroidism, unspecified; E11.9 Type 2 diabetes mellitus without complications; N39.0 Urinary tract infection, site not specified
CPT/HCPCS: 36415; 77063; 77067; 80053; 80061; 81003; 81015; 82150; 83036; 83690; 84439; 84443; 85025; 87086

== ENCOUNTER → 2023-10-08 13:01 | Outpatient (REF) | payer MEDICARE, OTHER, SELFPAY | LOC: RAD 13:01 | PROVIDERS: ATTENDING PHYSICIAN Surgery; FAMILY PHYSICIAN Family Medicine | DX: N28.89 Other specified disorders of kidney and ureter (principal); N13.30 Unspecified hydronephrosis | CPT/HCPCS: 74178; Q9967 ==

== ENCOUNTER → 2023-11-04 08:55 | Outpatient (REF) | payer MEDICARE, OTHER, SELFPAY ==
[2023-11-04 11:14] LABS: Amylase 75 U/L (30-110); Lipase 104 U/L (23-300)
== END ==
LOC: REG 08:55
PROVIDERS: ATTENDING PHYSICIAN Nurse Practitioner Family
DX: R10.13 Epigastric pain (principal)
CPT/HCPCS: 36415; 82150; 83690

== ENCOUNTER 2023-11-17 11:38 | Emergency (ER) | payer MEDICARE, OTHER, SELFPAY ==
[2023-11-17 11:42] VITALS: BP 159/85
[2023-11-17 12:40] LABS: % Basophils 0.4 % (0-2); % Eosinophils 3.2 % (0-6); % Immature Granulocytes 0.3 % (0-0.5); % Lymphocytes 24.8 % (20.5-51.1); % Neutrophils 64.3 % (42.2-75.2); Absolute Eosinophils 0.2 10^3/uL (0-0.7); Absolute Lymphocytes 1.8 10^3/uL (1.2-3.4); Absolute Monocytes 0.5 10^3/uL (0.1-0.6); Absolute Neutrophils 4.7 10^3/uL (1.4-6.5); Hematocrit 38.1 % (37.0-47.0); Hemoglobin 13.8 g/dL (12.0-16.0); Mean Corp Hgb Conc. 36.2 g/dL (33.0-37.0); Mean Corpuscular Hgb 33.2 pg (27.0-31.0); Mean Corpuscular Volume 91.6 fL (81.0-99.0); Mean Platelet Volume 11.2 fL (7.4-10.4); Nucleated Red Blood Cells % 0 %; Platelet Count 190 10^3/uL (130-400); Red Blood Cell Count 4.16 10^6/uL (4.20-5.40); Red Cell Dist. Width 12.1 % (11.5-14.5); White Blood Cell Count 7.3 10^3/uL (4.8-10.8)
--- NOTE | 2023-11-17 12:49 | ED.GENMED ---
History of Present Illness
General
Chief Complaint: Chest Pain
Source: patient
Time Seen by Provider: 11/17/23 12:39
History of Present Illness
History of Present Illness:
58yoF with a history of hypertension, hyperlipidemia, obesity, and anxiety presenting for evaluation after episode of chest discomfort. Patient was at work 4 days ago. 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 She was
in the elevator when she started to experience chest tightness. She also states that her jaw 'locked up.' Her jaw symptoms resolved after about 10 to 15 minutes and her chest tightness resolved after about an hour. There was no associated nausea,
dizziness, syncope, or diaphoresis during this episode. She denies any further chest pain although reports extreme fatigue. She is unsure if her symptoms are related to anxiety. She denies any known history of heart disease. She follows with
cardiology, Dr. Guerar, and had a stress test in 2020 which was reportedly normal.
Past History
Past History
ED Past Medical History: COPD, CVA (TIA), HTN, Hypercholesterolemia, Psychiatric (Anxiety depression) and Other (Anemia)
ED Past Surgical History: Other (cataracts, Dental Implants)
Patient has exhibited threatening behavior?: No
PSI?: No
Social History
Tobacco: Former smoker
Alcohol: None
Drug: None
Personal: Single
Living: alone
Employment: Not employed
Family History
Family History: Other (AndNoncontributory)
Phy Exam
General Physical Exam
General Presentation: well appearing
General age: appears stated age
General Skin: warm and dry
General Habitus: normal
General Mental: alert
Cardiovascular Exam
Cardiovascular Exam: regular rate/rhythm and no edema
Pulmonary Exam
Pulmonary Exam: lungs clear, no respiratory distress, no crackles and no wheezing
[place] Coma Scale
Eye Opening: Spontaneous
Verbal Response: Oriented
Motor Response: Obeys Commands
GCS Total Score: 15
Skin Exam
Skin Exam: normal color and warm/dry
Psychiatric Exam
Psychiatric Exam: normal mood/affect
Scores
Heart Score for Chest Pain Patients
STEMI patient?: Not applicable
Course
Orders/Labs/Results
Orders:
Orders
11/17/23 11:44
ECG [Electrocardiogram (*1)] Urgent
Reason for Study: Chest Pain
EKG- Treatment ONCE
11/17/23 11:56
CR Chest - 2 Views Urgent
Comment:
Reason For Exam: chest pain
11/17/23 12:00
Complete Blood Count/With Diff Urgent
Comprehensive Metabolic Panel Urgent
Troponin I Urgent
Abnormal Lab Results
11/17/23
12:00
RBC 4.16 L 10^6/uL
(4.20-5.40)
MCH 33.2 H pg
(27.0-31.0)
MPV 11.2 H fL
(7.4-10.4)
11/17/23 12:00
11/17/23 12:00
Vital Signs
Initial and Last Documented VS:
Initial Vital Signs
Temp Pulse Resp BP Pulse Ox
99.1 F 81 18 159/85 96
11/17/23 11:42 11/17/23 11:42 11/17/23 11:42 11/17/23 11:42 11/17/23 11:42
Last Documented Vital Signs
Temp Pulse Resp BP Pulse Ox
99.1 F 83 20 161/74 96
11/17/23 11:42 11/17/23 13:49 11/17/23 13:49 11/17/23 13:49 11/17/23 13:49
MDM/Problems Addressed
Differential Diagnosis Includes:
58yoF here after an episode of chest tightness and jaw locking 4 days ago. No further chest discomfort but she is experiencing fatigue. She is afebrile and hemodynamically stable. She is well appearing in no distress. Exam is reassuring.
Differential diagnosis includes but is not limited to: ACS, arrhythmia, pneumonia, anxiety
Initial ED plan: Check cardiac labs, EKG, and CXR.
*EKG
Interpreted by ED Provider?: Yes
EKG Intrepretation Date: 11/17/23
Heart Rate: 71
Rate: normal
Rhythm: sinus
[place]: normal axis
Interval: normal interval
QRS Pattern: normal QRS
Ischemia: no ischemia
*Critical Care Note
Total Time (30-74mins, 75-104mins- exclusive of procedures): Not Applicable
Update Note
Update Note:
Workup unremarkable. EKG shows NSR without ischemic changes. Troponin WNL. CXR is clear. HEART score is 3. No indication for admission. Advised f/u with PCP and cardiology. ED return precautions discussed. Patient expressed understanding and is
agreeable to plan. Patient discharged in stable condition.
ED Attending Note
-
Portions of this chart may have been created with voice recognition software.� Occasional wrong word or��sound alike� substitutions may have occurred due to the inherent limitations of voice recognition software.
Discharge Plan
Departure
Patient Disposition: Home (Routine Discharge)
Date of Disposition: 11/17/23
Time of Disposition: 14:17
Patient with high blood pressure during this ER visit?: Yes
Discharge Problem:
Chest pain
Instructions: Chest Pain CBC Follow Up
Prescriptions:
No Action
clonazepam 1 mg Tablet
1 mg PO BID PRN (Reason: anxiety)
Patient Comments:
09/27/2023, pt. took 3 tablets yesterday but it is normally BIDPRN.
Aquaphor Ointment
1 applic TOPICAL HSPRN PRN (Reason: B/L knees and elbows)
acetaminophen [Tylenol Extra Strength] 500 mg Tablet
1,000 mg PO DAILYPRN PRN (Reason: mild pain)
docusate sodium [Colace] 100 mg Capsule
100 mg PO DAILY PRN (Reason: constipation)
olanzapine 15 mg Tablet
15 mg PO DAILY
lisinopril 40 mg Tablet
40 mg PO HS
Patient Comments:
09/27/2023, pharmacy records have pt. filling 20 mg but [facility] records from 04/21/2023 have pt. taking 40 mg. Pt. states to be taking 40 mg. Pt. filled 20 mg on 07/12/2023 for 90-day supply.
rosuvastatin 40 mg Tablet
40 mg PO HS
melatonin 1 mg Tablet
1 mg PO HS PRN (Reason: sleep)
Wegovy 0.5 mg/0.5 mL Pen Injector
0.5 mg SC WE@0800
Referrals:
Chato Hilario DO [Family Provider] -
Jj Guerra MD [Active] -
Activity Restrictions/Additional Instructions:
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 Return to the ER with any new or worsening symptoms.
Interventions
Interventions:
*Risk Screen - Suicide Last Done: 11/17/23 11:55
*General Assessment Last Done: 11/17/23 11:55
*Neglect/Abuse Screening Last Done: 11/17/23 11:55
ED- Fall Risk Assessment Last Done: 11/17/23 11:55
*Nursing Disposition Last Done: 11/17/23 14:30
ED- Cardiac Assessment Last Done: 11/17/23 11:55
Discharge Date and Time
Discharge Date/Time: 11/17/23 15:24
Print Language: [place]
[2023-11-17 12:57] LABS: ALT (SGPT) 27 U/L (0-35); AST (SGOT) 23 U/L (14-36); Alkaline Phosphatase 86 U/L (38-126); Blood Urea Nitrogen 12 mg/dl (7-17); Calcium 9.4 mg/dl (8.4-10.2); Carbon Dioxide 27 mmol/L (22-30); Chloride 107 mmol/L (98-107); Glucose 81 mg/dl (70-99); Potassium 4.3 mmol/L (3.5-5.1); Sodium 138 mmol/L (135-145); Total Bilirubin 0.4 mg/dl (0.2-1.3); Total Protein 6.5 g/dl (6.3-8.2); eGFR > 60.00
[2023-11-17 13:04] LABS: Troponin I < 0.012 ng/ml
[2023-11-17 13:49] VITALS: BP 161/74
== END 2023-11-17 15:24 | disposition home or self-care (01) ==
LOC: EMR 11:38
PROVIDERS: Emergency Medicine; EMERGENCY PHYSICIAN Student in an Organized Health Care Education/Training Program; FAMILY PHYSICIAN Family Medicine
DX: R07.89 Other chest pain (principal); R53.83 Other fatigue; I10 Essential (primary) hypertension; E78.00 Pure hypercholesterolemia, unspecified; J44.9 Chronic obstructive pulmonary disease, unspecified; F41.9 Anxiety disorder, unspecified; F32.A Depression, unspecified; D64.9 Anemia, unspecified; Z86.73 Personal history of transient ischemic attack (TIA), and cerebral infarction without residual deficits; Z87.891 Personal history of nicotine dependence; E66.9 Obesity, unspecified; Z88.5 Allergy status to narcotic agent; Z88.8 Allergy status to other drugs, medicaments and biological substances
CPT/HCPCS: 99283; 71046; 80053; 84484; 85025; 93005

== ENCOUNTER → 2023-12-14 07:14 | Outpatient (REF) | payer MEDICARE, OTHER, SELFPAY | LOC: RCS 07:14 | PROVIDERS: ATTENDING PHYSICIAN Nurse Practitioner; FAMILY PHYSICIAN Family Medicine | DX: R07.89 Other chest pain (principal); R53.83 Other fatigue; I10 Essential (primary) hypertension; R06.83 Snoring | CPT/HCPCS: 93017 ==

== ENCOUNTER 2023-12-22 12:05 | Emergency (ER) | payer MEDICARE, OTHER, SELFPAY ==
[2023-12-22 12:06] VITALS: BMI 32.6
[2023-12-22 12:11] VITALS: BP 133/101
[2023-12-22 12:32] LABS: % Basophils 0.6 % (0-2); % Eosinophils 3.5 % (0-6); % Immature Granulocytes 0.1 % (0-0.5); % Lymphocytes 29.8 % (20.5-51.1); % Monocytes 7.4 % (1.7-9.3); % Neutrophils 58.6 % (42.2-75.2); Absolute Eosinophils 0.2 10^3/uL (0-0.7); Absolute Lymphocytes 2.1 10^3/uL (1.2-3.4); Absolute Monocytes 0.5 10^3/uL (0.1-0.6); Hematocrit 38.4 % (37.0-47.0); Hemoglobin 13.7 g/dL (12.0-16.0); Mean Corp Hgb Conc. 35.7 g/dL (33.0-37.0); Mean Corpuscular Hgb 31.9 pg (27.0-31.0); Mean Corpuscular Volume 89.5 fL (81.0-99.0); Mean Platelet Volume 10.6 fL (7.4-10.4); Nucleated Red Blood Cells % 0 %; Platelet Count 222 10^3/uL (130-400); Red Blood Cell Count 4.29 10^6/uL (4.20-5.40); White Blood Cell Count 6.9 10^3/uL (4.8-10.8)
[2023-12-22 12:48] LABS: ALT (SGPT) 27 U/L (0-35); AST (SGOT) 24 U/L (14-36); Albumin 4.1 g/dl (3.5-5.0); Alkaline Phosphatase 92 U/L (38-126); Blood Urea Nitrogen 12 mg/dl (7-17); Calcium 9.5 mg/dl (8.4-10.2); Carbon Dioxide 24 mmol/L (22-30); Chloride 105 mmol/L (98-107); Glucose 89 mg/dl (70-99); Potassium 4.2 mmol/L (3.5-5.1); Sodium 143 mmol/L (135-145); Total Bilirubin 0.4 mg/dl (0.2-1.3); Total Protein 6.6 g/dl (6.3-8.2); eGFR > 60.00
[2023-12-22 13:21] VITALS: BP 148/93
--- NOTE | 2023-12-22 14:15 | ED.GENMED ---
History of Present Illness
General
Chief Complaint: Headache
Time Seen by Provider: 12/22/23 13:05
History of Present Illness
History of Present Illness:
58-year-old female with history of TIA presenting to the emergency department for right-sided headache. Patient reports since 4 PM yesterday she has been having intermittent pain in the right frontal aspect of her head. She reports that she gets a
sharp shooting pain that lasts a few seconds about every 20 minutes. Denies any weakness or numbness to her extremities. Denies any visual changes or speech changes. She has not tried any medications for the headache. Denies fever. Denies chest
pain or difficulty breathing. Denies abdominal pain or GI symptoms. She was concern for TIA, which brought her to the emergency department. Denies additional acute medical complaints
Past History
Past History
ED Past Medical History: COPD, CVA (TIA), HTN, Hypercholesterolemia, Psychiatric (Anxiety depression) and Other (Anemia)
ED Past Surgical History: Other (cataracts, Dental Implants)
Patient has exhibited threatening behavior?: No
PSI?: No
Social History
Tobacco: Former smoker
Alcohol: None
Drug: None
Personal: Single
Living: alone
Employment: Not employed
Family History
Family History: Other (AndNoncontributory)
Phy Exam
Physical Exam
Physical Exam:
General: Well-appearing, no clinical signs of dehydration, nontoxic and in no acute distress
HEENT: protecting airway
Neck: appears supple
CV: Normal heart rate, regular rhythm
Resp: No accessory muscle use, no increased work of breathing, lungs clear to auscultation bilaterally
Abd: Soft and non-distended, no tenderness to palpation
Extremities: No deformities, no swelling, no erythema
Neuro: alert, no focal neurologic deficit
: deferred
Rectal: deferred
Psych: Normal affect
Skin: Intact
Scores
NIH Stroke Score
Level of Consciousness: 0 - Alert
LOC Questions: 0-Answers both correctly
LOC Commands: 0-Performs both correctly
Best Horizontal Gaze: 0-Normal
Visual Flowers: 0=Normal, no visual loss
Facial Palsy: 0=Normal, symmetrical
Motor - Right Arm: 0=No drift 10 seconds
Motor - Left Arm: 0=No drift 10 seconds
Motor - Right Le-No drift 5 seconds
Motor - Left Le-No drift 5 seconds
Limb Ataxia: 0-Absent
Sensation: 0-Normal
Best Language: 0-No aphasia
Dysarthria: 0-Normal
Extinction and Inattention: 0-No abnormality
Total Score:: 0
Course
Orders/Labs/Results
Orders:
Orders
12/22/23 12:[address] [CT Head W/o Iv Contrast] Urgent
Comment:
Reason For Exam: headache
12/22/23 12:22
Complete Blood Count/With Diff Urgent
Comprehensive Metabolic Panel Urgent
12/22/23 13:55
Acetaminophen [Tylenol] 1,000 mg PO NOW STA
Abnormal Lab Results
12/22/23
12:22
MCH 31.9 H pg
(27.0-31.0)
MPV 10.6 H fL
(7.4-10.4)
12/22/23 12:22
12/22/23 12:22
Vital Signs
Initial and Last Documented VS:
Initial Vital Signs
Temp Pulse Resp BP Pulse Ox
98.1 F 77 18 133/101 97
12/22/23 12:11 12/22/23 12:11 12/22/23 12:11 12/22/23 12:11 12/22/23 12:11
Last Documented Vital Signs
Temp Pulse Resp BP Pulse Ox
98.1 F 74 17 148/93 97
12/22/23 13:20 12/22/23 13:22 12/22/23 13:22 12/22/23 13:21 12/22/23 12:11
MDM/Problems Addressed
MDM/Problems Addressed:
58-year-old female with history of TIA presenting for right-sided headache. Vital signs are normal.
On exam, patient in no acute distress, nontoxic. Unremarkable neurologic exam, no focal neurologic deficits. NIH of 0. At this time for TIA or CVA. Patient symptoms do not appear consistent with strokelike symptoms. Suspect migrainous versus
tension headache. Patient notes she is on Wegovy, possible dehydration component. Patient had screening laboratory analysis and CT brain prior to my assessment, pending CT brain read. Labs unremarkable.
14:20 - CT without acute intracranial abnormality. Tylenol administered for patient's headache. Patient otherwise remains hemodynamically stable. At this time feel that she is stable for discharge with close interval follow-up with her doctor.
Return precautions discussed and patient verbalized understanding
*Critical Care Note
Total Time (30-74mins, 75-104mins- exclusive of procedures): Not Applicable
ED Attending Note
-
Portions of this chart may have been created with voice recognition software.� Occasional wrong word or��sound alike� substitutions may have occurred due to the inherent limitations of voice recognition software.
Discharge Plan
Departure
Patient Disposition: Home (Routine Discharge)
Date of Disposition: 12/22/23
Time of Disposition: 14:23
Patient with high blood pressure during this ER visit?: No
Condition: Good
Discharge Problem:
Acute tension headache
Instructions: Headache, Adult (DC)
Prescriptions:
No Action
clonazepam 1 mg Tablet
1 mg PO BID PRN (Reason: anxiety)
Patient Comments:
09/27/2023, pt. took 3 tablets yesterday but it is normally BIDPRN.
Aquaphor Ointment
1 applic TOPICAL HSPRN PRN (Reason: B/L knees and elbows)
acetaminophen [Tylenol Extra Strength] 500 mg Tablet
1,000 mg PO DAILYPRN PRN (Reason: mild pain)
docusate sodium [Colace] 100 mg Capsule
100 mg PO DAILY PRN (Reason: constipation)
olanzapine 15 mg Tablet
15 mg PO DAILY
lisinopril 40 mg Tablet
40 mg PO HS
Patient Comments:
09/27/2023, pharmacy records have pt. filling 20 mg but [facility] records from 04/21/2023 have pt. taking 40 mg. Pt. states to be taking 40 mg. Pt. filled 20 mg on 07/12/2023 for 90-day supply.
rosuvastatin 40 mg Tablet
40 mg PO HS
melatonin 1 mg Tablet
1 mg PO HS PRN (Reason: sleep)
Wegovy 0.5 mg/0.5 mL Pen Injector
0.5 mg SC WE@0800
Referrals:
Chato Hilario DO [Family Provider] -
Activity Restrictions/Additional Instructions:
You were seen in the emergency department for headache
You were found to have normal laboratory analysis and CT imaging of your brain
Please follow-up closely with your primary care physician.
Return to the emergency department for any worsening of your symptoms, or any development of chest pain, difficulty breathing, abdominal pain with persistent vomiting and inability to tolerate food or liquid by mouth (concern for dehydration),
weakness or numbness to her extremities, headache or confusion, fever greater than 100.4, or any additional symptoms that are concerning to you.
Thank you for choosing [facility].
Interventions
Interventions:
*Risk Screen - Suicide Last Done: 12/22/23 12:11
*General Assessment Last Done: 12/22/23 12:11
*Neglect/Abuse Screening Last Done: 12/22/23 12:11
*ED COVID-19 Vaccine History Last Done: 12/22/23 13:18
ED- Cardiac Assessment Last Done: 12/22/23 13:22
ED- Neurological Assessment Last Done: 12/22/23 13:22
ED- Pulmonary Assessment Last Done: 12/22/23 13:22
ED Swallowing Screen Last Done: 12/22/23 13:23
Discharge Date and Time
Print Language: [place]
[2023-12-22] MEDS: TYLENOL 1000 MG PO (14:35)
[2023-12-22 14:38] VITALS: BP 150/80
== END 2023-12-22 14:48 | disposition home or self-care (01) ==
LOC: EMR 12:05
PROVIDERS: Emergency Medicine; EMERGENCY PHYSICIAN Student in an Organized Health Care Education/Training Program; FAMILY PHYSICIAN Family Medicine
DX: G44.209 Tension-type headache, unspecified, not intractable (principal); I10 Essential (primary) hypertension; J44.9 Chronic obstructive pulmonary disease, unspecified; E78.00 Pure hypercholesterolemia, unspecified; F41.9 Anxiety disorder, unspecified; D64.9 Anemia, unspecified; F32.A Depression, unspecified; Z86.73 Personal history of transient ischemic attack (TIA), and cerebral infarction without residual deficits; Z87.891 Personal history of nicotine dependence; Z88.5 Allergy status to narcotic agent; Z88.8 Allergy status to other drugs, medicaments and biological substances
CPT/HCPCS: 99284; 70450; 80053; 85025

== ENCOUNTER 2023-12-27 23:21 | Emergency (ER) | payer MEDICARE, OTHER, SELFPAY ==
[2023-12-27 23:28] VITALS: BP 154/82; BMI 34.1
[2023-12-27] MEDS: MOTRIN 400 MG PO (23:59)
[2023-12-28] VITALS: BP 126/69
[2023-12-28 00:47] VITALS: BP 132/82
--- NOTE | 2023-12-28 00:56 | ED.GENMED ---
History of Present Illness
General
Chief Complaint: Musculo-Skeletal Complaint
Source: patient
Exam Limitations: none
Time Seen by Provider: 12/27/23 23:53
Nursing documentation reviewed up to this point in time: agreed with
History of Present Illness
History of Present Illness:
58-year-old female with history as documented presents to the ER for evaluation of right ankle injury. Patient reports that she was sitting in a chair and her foot fell asleep. She says that she tried to get up and suffered an inversion injury of
the right ankle. She says she heard a snap. She did not have any fall or secondary trauma. She had trouble bearing weight and ambulance was called to bring her to the hospital. Apparently the medics gave her 80 mcg of intranasal fentanyl. She
denies any knee pain. She denies any other issues.
Past History
Past History
ED Past Medical History: COPD, CVA (TIA), HTN, Hypercholesterolemia, Psychiatric (Anxiety depression) and Other (Anemia)
ED Past Surgical History: Other (cataracts, Dental Implants)
Patient has exhibited threatening behavior?: No
PSI?: No
Social History
Tobacco: Former smoker
Alcohol: None
Drug: None
Personal: Single
Living: alone
Employment: Not employed
Family History
Family History: Other (AndNoncontributory)
Review of Systems
Review of Systems
All Other Systems: ROS reviewed and negative except as documented in HPI and ROS
Musculoskeletal: Reports other (Right ankle injury)
Phy Exam
Physical Exam
Physical Exam:
General: Awake, alert, oriented x3; no acute distress
Head: Normocephalic, atraumatic
Eyes: Conjunctiva normal
Throat: Airway intact
Neck: Trachea midline, moving neck through comfortable range of motion
Lungs: Breathing comfortably no distress
Heart: Regular rate; strong right dorsalis pedis pulse
Neuro: Cranial nerves grossly intact, speech fluid, motor and sensory function intact distal right lower extremity
Skin: Small amount of ecchymosis lateral right ankle
Extremities: Patient has no deformity of the ankle on the right; some slight swelling of the lateral right ankle just anterior to the lateral malleolus and she has localized tenderness in this area; she has no tenderness along the fifth metatarsal
or medial malleolus on the right, no midfoot tenderness; she has no tenderness of the right knee and full active range of motion of the right knee; rest of extremities appear atraumatic
Scores
Heart Failure Risk
Heart Failure Risk Score: Not Applicable
Heart Score for Chest Pain Patients
STEMI patient?: Not applicable
Withdrawal Assessment of Alcohol
Withdrawal Assessment Completed?: Not applicable
Course
Orders/Labs/Results
Orders:
Orders
12/27/23 23:53
Ibuprofen [Motrin] 400 mg PO NOW STA
12/28/23 00:02
CR Ankle - Right Min 3 Views * Urgent
Reason For Exam: fell, heard snap r ankle, c/o pain and swelling
12/28/23 00:25
Feliz Wrap Right-Treatment ONCE
boot [Ortho Boot Right- Treatment] ONCE
Short or tall?: Short
Vital Signs
Initial and Last Documented VS:
Initial Vital Signs
Temp Pulse Resp BP Pulse Ox
37.1 C 72 15 154/82 94
12/27/23 23:28 12/27/23 23:28 12/27/23 23:28 12/27/23 23:28 12/27/23 23:28
Last Documented Vital Signs
Temp Pulse Resp BP Pulse Ox
37.1 C 76 18 126/69 96
12/27/23 23:28 12/28/23 00:00 12/28/23 00:00 12/28/23 00:00 12/27/23 23:45
MDM/Problems Addressed
Differential Diagnosis Includes:
Ankle sprain, ankle fracture
MDM/Problems Addressed:
58-year-old female presents after an inversion injury of the right ankle. She says she heard a pop. Difficulty bearing weight afterwards. She has some slight swelling and tenderness along the lateral malleolus and just anterior to the lateral
malleolus. Some bruising in this area. Neurovascular exam intact. No pain or tenderness in the knee on the right. She was sent for an x-ray which was reviewed by me and shows no acute fracture. Suspect ankle sprain. Will place in CAM boot,
referred to orthopedics for outpatient follow-up. NSAIDs and Tylenol for pain control. Discussed RICE. All questions answered.
Acute Exacerbation and/or Progression of Chronic Illness:
Acutely hypertensive likely pain related�resolved with Motrin. No additional antihypertensives indicated at present
*Radiology
Radiology exam reviewed: preliminary read by ED provider
*Pulse Oximetry
Patient hypoxic: no
*Critical Care Note
Total Time (30-74mins, 75-104mins- exclusive of procedures): Not Applicable
Data Reviewed
Source: patient and spouse
ED Attending Note
-
Portions of this chart may have been created with voice recognition software.� Occasional wrong word or��sound alike� substitutions may have occurred due to the inherent limitations of voice recognition software.
Discharge Plan
Departure
Patient Disposition: Home (Routine Discharge)
Date of Disposition: 12/28/23
Time of Disposition: 00:26
Patient with high blood pressure during this ER visit?: Yes
Discharge Problem:
Ankle sprain, Ankle injury
Instructions: Sprain (DC)
Prescriptions:
New
ibuprofen 400 mg tablet
400 mg PO Q6H PRN (Reason: Pain) Qty: 30 0RF
No Action
clonazepam 1 mg Tablet
1 mg PO BID PRN (Reason: anxiety)
Patient Comments:
09/27/2023, pt. took 3 tablets yesterday but it is normally BIDPRN.
acetaminophen [Tylenol Extra Strength] 500 mg Tablet
1,000 mg PO DAILYPRN PRN (Reason: mild pain)
olanzapine 15 mg Tablet
15 mg PO DAILY
rosuvastatin 40 mg Tablet
40 mg PO HS
Wegovy 0.5 mg/0.5 mL Pen Injector
1.7 mg SC WE@0800
lisinopril 30 mg Tablet
30 mg PO HS
Referrals:
Chato Hilario DO [Family Provider] -
Rodolfo Hillman MD [Active] - Follow up in 1 week ([facility] orthopedics)
Stand Alone Forms: Return to Work
Activity Restrictions/Additional Instructions:
Thank you for visiting the Emergency Department at [facility].
1. Please schedule a follow up appointment as directed. Call first thing tomorrow morning to make an appointment.
2. If indicated, please take your medications as instructed and indicated on discharge paperwork.
3. If any of your symptoms do not improve, or persist, or become more severe within 6-12 hours, please return to the emergency department for further care.
4. Please return to the emergency department if you develop a headache, neck pain/stiffness, fever greater than 100.4F, chest pain, shortness of breath, persistent nausea, vomiting, slurred speech, difficulty walking, numbness/tingling, weakness,
signs of infection or any other symptoms that are worrisome to you.
Please call [phone] if you have any questions.
Interventions
Interventions:
*Risk Screen - Suicide Last Done: 12/27/23 23:28
*General Assessment Last Done: 12/27/23 23:28
*Neglect/Abuse Screening Last Done: 12/27/23 23:28
ED- Fall Risk Assessment Last Done: 12/27/23 23:28
*ED COVID-19 Vaccine History Last Done: 12/27/23 23:28
ED-Musculoskeletal Assessment Last Done: 12/27/23 23:40
Discharge Date and Time
Print Language: CYPRIOT
== END 2023-12-28 01:05 | disposition home or self-care (01) ==
LOC: EMR 23:21
PROVIDERS: EMERGENCY PHYSICIAN Emergency Medicine; FAMILY PHYSICIAN Family Medicine
DX: M25.571 Pain in right ankle and joints of right foot (principal); J44.9 Chronic obstructive pulmonary disease, unspecified; I10 Essential (primary) hypertension; F41.8 Other specified anxiety disorders; F41.9 Anxiety disorder, unspecified; E78.00 Pure hypercholesterolemia, unspecified; S93.401A Sprain of unspecified ligament of right ankle, initial encounter; Z86.73 Personal history of transient ischemic attack (TIA), and cerebral infarction without residual deficits; Z87.891 Personal history of nicotine dependence
CPT/HCPCS: 99283; 73610

== ENCOUNTER 2024-05-03 21:21 | Emergency (ER) | payer MEDICARE, OTHER, SELFPAY ==
[2024-05-03 21:26] VITALS: BP 176/96
[2024-05-03 21:45] LABS: % Basophils 0.7 % (0-2); % Eosinophils 3.6 % (0-6); % Immature Granulocytes 0.1 % (0-0.5); % Lymphocytes 34.9 % (20.5-51.1); % Monocytes 6.6 % (1.7-9.3); % Neutrophils 54.1 % (42.2-75.2); Absolute Basophils 0.1 10^3/uL (0-0.2); Absolute Eosinophils 0.3 10^3/uL (0-0.7); Absolute Lymphocytes 2.7 10^3/uL (1.2-3.4); Absolute Monocytes 0.5 10^3/uL (0.1-0.6); Absolute Neutrophils 4.1 10^3/uL (1.4-6.5); Hematocrit 36.8 % (37.0-47.0); Hemoglobin 12.8 g/dL (12.0-16.0); Mean Corp Hgb Conc. 34.8 g/dL (33.0-37.0); Mean Corpuscular Hgb 32.3 pg (27.0-31.0); Mean Corpuscular Volume 92.9 fL (81.0-99.0); Mean Platelet Volume 10.9 fL (7.4-10.4); Nucleated Red Blood Cells % 0 %; Platelet Count 206 10^3/uL (130-400); Red Blood Cell Count 3.96 10^6/uL (4.20-5.40); Red Cell Dist. Width 11.9 % (11.5-14.5); White Blood Cell Count 7.6 10^3/uL (4.8-10.8)
[2024-05-03 21:58] LABS: ALT (SGPT) 33 U/L (0-35); AST (SGOT) 25 U/L (14-36); Albumin 4.6 g/dl (3.5-5.0); Alkaline Phosphatase 79 U/L (38-126); Blood Urea Nitrogen 14 mg/dl (7-17); Calcium 9.5 mg/dl (8.4-10.2); Carbon Dioxide 27 mmol/L (22-30); Chloride 103 mmol/L (98-107); Glucose 95 mg/dl (70-99); Potassium 4.2 mmol/L (3.5-5.1); Sodium 139 mmol/L (135-145); Total Bilirubin 0.6 mg/dl (0.2-1.3); Total Protein 6.8 g/dl (6.3-8.2); eGFR > 60.00
[2024-05-03 22:09] LABS: Troponin I < 0.012 ng/ml
[2024-05-03 23:19] VITALS: BMI 33.1
[2024-05-03 23:23] VITALS: BP 165/78
[2024-05-04] VITALS: BP 135/91
[2024-05-04] MEDS: DUONEB 3 ML INH (00:28)
--- NOTE | 2024-05-04 00:30 | ED.GENMED ---
History of Present Illness
General
Chief Complaint: Chest Pain
Source: patient and previous hospital records (Unremarkable stress test November 2023)
Exam Limitations: none
Time Seen by Provider: 05/03/24 23:40
Nursing documentation reviewed up to this point in time: agreed with
History of Present Illness
History of Present Illness:
This is a 58-year-old woman who has history of mild asthma/mild COPD, history of hypertension, hyperlipidemia, TIA, migraine headaches, anxiety/depression.
She complains of 2-day history of feeling of some shortness of breath which she describes as difficulty taking a deep breath accompanied with some upper central chest discomfort which is somewhat worsened when she attempts to take a deep breath.
She states she has had rare brief dry cough but no fever nor chills. She denies nasal congestion, no sore throat, no sneezing. She has had intermittent bilateral eye tearing and mildly itchy eyes.
She has a nebulizer machine at home and tried an albuterol nebulizer last night without significant relief.
She denies recent travel. No leg pain or swelling.
No history of thromboembolism.
She is a non-smoker.
Previous ED visits September as well as October 2023 for chest pain complaints. At that time without associated shortness of breath. Unremarkable ED evaluations. She follows with cardiology, Dr. Guerra and underwent unremarkable stress test November
2023.
She has been evaluated by telephone triage nurse in the past for similar shortness of breath and plans to schedule an appointment for follow-up with telephone triage nurse.
Patient states she has never required maintenance/a daily inhaler such as inhaled corticosteroids nor long-acting beta agonist. She also notes rarely using albuterol nebulizer.
Past History
Past History
ED Past Medical History: COPD (Mild), CVA (TIA), HTN, Hypercholesterolemia, Psychiatric (Anxiety depression) and Other (Anemia)
ED Past Surgical History: Other (cataracts, Dental Implants)
Patient has exhibited threatening behavior?: No
PSI?: No
Social History
Tobacco: Former smoker
Alcohol: None
Drug: None
Personal: Single
Living: alone
Employment: Employed
Family History
Family History: Other (Noncontributory)
Phy Exam
Physical Exam
Physical Exam:
GENERAL: 58-year-old woman appears her stated age, bright and alert, pleasant, appears in no acute distress. Easily communicative. No cough appreciated during exam. Respirations are easy nonlabored. Pulse ox 100% on room air.
EYE: pupils equal and reactive. anicteric. No conjunctival injection. No tearing nor exudate.
NECK: Supple, nontender, no meningismus, no significant adenopathy.
ENT: posterior pharynx is clear, oral mucosa is moist. TM clear b/l, nares have moderately boggy pale blue turbinates without rhinorrhea.
CARDIAC: Regular rate and rhythm. no murmur.
LUNGS: Clear breath sounds bilaterally, no acute respiratory distress, no wheezes/rales/rhonchi
ABDOMEN: Soft, nondistended, without focal tenderness, normoactive BS.
NEUROLOGICAL: Alert and oriented x3, no focal neuro deficits.
SKIN: Warm and dry, normal color, skin intact. No rash.
MUSCULOSKELETAL: No C/C/E. peripheral pulses are full and equal b/l. No palpable tenderness.
PSYCH: Normal and appropriate interaction.
Scores
Heart Score for Chest Pain Patients
STEMI patient?: No
History: Slightly or Non-Suspicious
ECG: Normal
Age: >45 - <65 years
Risk Factors: 1 or 2 Risk Factors
Troponin: </= Normal Limit
Heart Score for Chest Pain Patients: 2
Heart Score Risk: 2.5% MACE over next 6 weeks
Course
Orders/Labs/Results
Orders:
Orders
05/03/24 21:22
EKG [Electrocardiogram (*1)] Urgent
Reason for Study: Chest Pain
EKG- Treatment ONCE
05/03/24 21:33
Complete Blood Count/With Diff Urgent
Comprehensive Metabolic Panel Urgent
NT-proBNP Urgent
Comment: ADD ON
Troponin I Urgent
05/04/24 00:24
Add On- LAB Urgent
Tests Added?: pro-bnp
Chest [CR Chest - 2 Views ] Urgent
Comment:
Reason For Exam: driscoll
05/04/24 00:25
Ipratropium/Albuterol Sulfate [Duoneb] 3 ml .ROUTE .STK-MED ONE
05/04/24 00:28
Ipratropium/Albuterol Sulfate [Duoneb] 3 ml INH R NOW ONE
Abnormal Lab Results
05/03/24
21:33
RBC 3.96 L 10^6/uL
(4.20-5.40)
Hct 36.8 L %
(37.0-47.0)
MCH 32.3 H pg
(27.0-31.0)
MPV 10.9 H fL
(7.4-10.4)
05/03/24 21:33
05/03/24 21:33
Vital Signs
Initial and Last Documented VS:
Initial Vital Signs
Temp Pulse Resp BP Pulse Ox
98.2 F 71 16 176/96 99
05/03/24 21:26 05/03/24 21:26 05/03/24 21:26 05/03/24 21:26 05/03/24 21:26
Last Documented Vital Signs
Temp Pulse Resp BP Pulse Ox
98.2 F 69 18 157/84 98
05/03/24 21:26 05/04/24 01:00 05/04/24 01:00 05/04/24 01:00 05/04/24 01:35
MDM/Problems Addressed
Differential Diagnosis Includes:
Concern for exacerbation of asthma/COPD, CHF, pneumonia, other consideration is ACS.
No history of thromboembolism nor risk factors for such.
Overall well in appearance.
Thus far labs are unremarkable including negative troponin.
EKG is unremarkable and unchanged from previous.
With ongoing symptoms for 2 days, normal/stable EKG and negative troponin. ACS is doubtful.
Will check BNP along with chest x-ray.
Will trial DuoNeb nebulizer.
Chronic conditions affecting care: HTN and Asthma
*Radiology
Radiology exam reviewed: preliminary read by ED provider (Chest x-ray is unremarkable.)
*Pulse Oximetry
Patient hypoxic: no
*EKG
Interpreted by ED Provider?: Yes
Interpretation: normal
Comparison EKG: no changes (Unchanged from previous October 2023)
Rate: normal
Rhythm: sinus
[place]: normal axis
Interval: normal interval
QRS Pattern: normal QRS
Ischemia: no ischemia
*Cardiovascular Or Nurse Interpretation
Rate: normal
Interpretation: normal
Rhythm: sinus
*Critical Care Note
Total Time (30-74mins, 75-104mins- exclusive of procedures): Not Applicable
Update Note
Update Note:
01:50
Patient feeling markedly improved after nebulizer treatment.
No further difficulty with inspiration, denies chest pain. She is got herself dressed and is eager to be discharged to home.
Chest x-ray is unremarkable.
BNP is normal.
I suspect mild exacerbation of COPD.
Heart score of 2.
Reassuring that symptoms have resolved after nebulizer treatment. Reassuring that EKG is unremarkable, unchanged from previous and negative troponin.
Patient has undergone unremarkable cardiac testing/stress test November 2023.
Will prescribe DuoNeb Nebules to be used as needed for shortness of breath.
Plan for follow-up with telephone triage nurse for further evaluation.
Return precautions discussed.
ED Attending Note
-
Portions of this chart may have been created with voice recognition software.� Occasional wrong word or��sound alike� substitutions may have occurred due to the inherent limitations of voice recognition software.
Discharge Plan
Departure
Patient Disposition: Home (Routine Discharge)
Date of Disposition: 05/04/24
Time of Disposition: 01:53
Patient with high blood pressure during this ER visit?: No
Condition: Good
Discharge Problem:
mild exacerbation of COPD
Instructions: Chronic obstructive pulmonary disease (COPD)
Prescriptions:
New
ipratropium-albuterol 0.5 mg-3 mg(2.5 mg base)/3 mL solution for nebulization
3 ml inhalation QID PRN (Reason: shortness of breath) Qty: 90 0RF
No Action
clonazepam 1 mg Tablet
1 mg PO BID PRN (Reason: anxiety)
Patient Comments:
09/27/2023, pt. took 3 tablets yesterday but it is normally BIDPRN.
acetaminophen [Tylenol Extra Strength] 500 mg Tablet
1,000 mg PO DAILYPRN PRN (Reason: mild pain)
olanzapine 15 mg Tablet
15 mg PO DAILY
rosuvastatin 40 mg Tablet
40 mg PO HS
Wegovy 0.5 mg/0.5 mL Pen Injector
1.7 mg SC WE@0800
lisinopril 30 mg Tablet
30 mg PO HS
ibuprofen 400 mg tablet
400 mg PO Q6H PRN (Reason: Pain) Qty: 30 0RF
Referrals:
Chato Hilario DO [Primary Care Provider] - Call in 1-3 days for appt
Edward Man MD [Active] - Call in 1-3 days for appt
Interventions
Interventions:
*Risk Screen - Suicide Last Done: 05/03/24 21:26
*General Assessment Last Done: 05/03/24 23:19
*Neglect/Abuse Screening Last Done: 05/03/24 21:26
ED- Fall Risk Assessment Last Done: 05/03/24 23:19
*ED COVID-19 Vaccine History Last Done: 05/03/24 23:19
ED- Cardiac Assessment Last Done: 05/03/24 23:19
Discharge Date and Time
Print Language: HUNGARIAN
[2024-05-04 01:00] VITALS: BP 157/84
[2024-05-04 01:07] LABS: NT-proBNP 204 pg/ml
== END 2024-05-04 02:05 | disposition home or self-care (01) ==
LOC: EMR 21:21
PROVIDERS: Emergency Medicine; EMERGENCY PHYSICIAN Emergency Medicine; PRIMARYCARE PHYSICIAN Family Medicine
DX: J44.1 Chronic obstructive pulmonary disease with (acute) exacerbation (principal); I10 Essential (primary) hypertension; E78.00 Pure hypercholesterolemia, unspecified; F41.9 Anxiety disorder, unspecified; Z86.73 Personal history of transient ischemic attack (TIA), and cerebral infarction without residual deficits
CPT/HCPCS: 99283; 94640; 71046; 80053; 83880; 84484; 85025; 93005

== ENCOUNTER 2024-05-08 20:29 | Emergency (ER) | payer MEDICARE, OTHER, SELFPAY ==
[2024-05-08 20:29] VITALS: BP 174/93
--- NOTE | 2024-05-08 21:53 | ED.GENMED ---
History of Present Illness
General
Chief Complaint: Breathing Problem
Source: patient and records
Exam Limitations: none
Time Seen by Provider: 05/08/24 21:39
History of Present Illness
History of Present Illness:
58yoF with a history of hypertension, hyperlipidemia, and anxiety presenting for evaluation of shortness of breath. Symptoms have been ongoing for about 5 days. Patient reports difficulty exhaling and does not feel like she is able to get all the
air out. She feels like her lungs are restricting. She also has some discomfort at the bottom of her lungs bilaterally. She has been around several coworkers that have been sick and is worried that she has pneumonia. She reports a cough that is
productive of clear phlegm. She denies any fevers or leg swelling. Patient was seen in the ED 5 days ago for the same and was discharged with a prescription for DuoNeb nebulizer solution. Patient has been doing neb treatments every 6 hours
without much improvement. She denies any history of COPD or asthma. She has a very remote history of smoking as a teenager. She has an appointment with pulmonology scheduled in 3 days.
Past History
Past History
ED Past Medical History: COPD (Mild), CVA (TIA), HTN, Hypercholesterolemia, Psychiatric (Anxiety depression) and Other (Anemia)
ED Past Surgical History: Other (cataracts, Dental Implants)
Patient has exhibited threatening behavior?: No
PSI?: No
Social History
Tobacco: Former smoker
Alcohol: None
Drug: None
Personal: Single
Living: alone
Employment: Employed
Family History
Family History: Other (Noncontributory)
Phy Exam
General Physical Exam
General Presentation: well appearing and no apparent distress
General age: appears stated age
General Skin: warm and dry
General Habitus: normal
General Mental: alert
ENT Exam
ENT Exam: normocephalic
Cardiovascular Exam
Cardiovascular Exam: regular rate/rhythm, no edema and no murmur
Pulmonary Exam
Pulmonary Exam: lungs clear, no respiratory distress, no rales, no crackles, no rhonchi, no wheezing and other (Lungs clear without wheezing or rales. Speaking in full sentences without difficulty. )
Neurological Exam
Neurological Exam: alert
[place] Coma Scale
Eye Opening: Spontaneous
Verbal Response: Oriented
Motor Response: Obeys Commands
GCS Total Score: 15
Skin Exam
Skin Exam: normal color and warm/dry
Psychiatric Exam
Psychiatric Exam: normal mood/affect
Scores
Heart Failure Risk
Heart Failure Risk Score: Not Applicable
Course
Orders/Labs/Results
Orders:
Orders
05/08/24 20:35
Electrocardiogram (*1) Urgent
Reason for Study: Chest Pain
EKG- Treatment ONCE
05/08/24 21:52
CR Chest - 2 Views Urgent
Comment:
Reason For Exam: SOB
05/08/24 21:53
Cardiac Monitoring- Treatment ONCE
05/08/24 22:06
COVID-19 Antigen Urgent
Source: Nasal Swab
Complete Blood Count/With Diff Urgent
Comprehensive Metabolic Panel Urgent
D-Dimer Urgent
NT-proBNP Urgent
Troponin I Urgent
Urinalysis Reflex To Culture Urgent
Date Specimen was Collected: 05/08/24
Time Specimen was Collected: 21:58
Urine Microscopic Reflex Cult Urgent
Influenza A+B Rapid Molecular Urgent
AIDEN Source: Nasal Swab
Specimen Description:
Urine Culture Urgent
AIDEN Source: U
Specimen Description:
Date Specimen was Collected: 05/08/24
Time Specimen was Collected: 21:58
Abnormal Lab Results
05/08/24
22:06
RBC 3.81 L 10^6/uL
(4.20-5.40)
Hct 35.4 L %
(37.0-47.0)
MCH 32.0 H pg
(27.0-31.0)
MPV 10.6 H fL
(7.4-10.4)
Chloride 108 H mmol/L
(98-107)
BUN 19 H mg/dl
(7-17)
Glucose 114 H mg/dl
(70-99)
Leukocyte Esterase Rfl 3+ A
(Negative)
Urine WBC (Reflex) 21-25 A /HPF
(0-5)
Urine Bacteria (Reflex) Moderate A
(Negative)
Urine Albumin (Reflex) 1+ A
(Neg - Trace)
05/08/24 22:06
05/08/24 22:06
Vital Signs
Initial and Last Documented VS:
Initial Vital Signs
Temp Pulse Resp BP Pulse Ox
98.9 F 88 18 174/93 98
05/08/24 20:29 05/08/24 20:29 05/08/24 20:29 05/08/24 20:29 05/08/24 20:29
Last Documented Vital Signs
Temp Pulse Resp BP Pulse Ox
98.9 F 72 20 158/80 98
05/08/24 20:29 05/09/24 00:20 05/09/24 00:20 05/09/24 00:20 05/09/24 00:20
MDM/Problems Addressed
Differential Diagnosis Includes:
58yoF here with SOB and cough x 5 days. 2nd ED visit for the same. Using neb treatments without improvement. Believes she has pneumonia. She is hypertensive with otherwise normal vitals. Oxygen saturation 98% on room air. Lungs CTA and respirations
non-labored. No peripheral edema. Differential diagnosis includes but is not limited to: viral illness, bronchitis, pneumonia, PE, ACS, CHF
Initial ED plan: Check cardiac labs, D-dimer, EKG, COVID/flu swabs, and CXR. Patient reports having an abnormal urinalysis at her PCP's office recently and is requesting to have this checked.
*EKG
Interpreted by ED Provider?: Yes
EKG Intrepretation Date: 05/08/24
Heart Rate: 83
Rate: normal
Rhythm: sinus
[place]: normal axis
Interval: normal interval
QRS Pattern: normal QRS
Ischemia: no ischemia
*Critical Care Note
Total Time (30-74mins, 75-104mins- exclusive of procedures): Not Applicable
Update Note
Update Note:
Labs unremarkable. EKG shows NSR without ischemic changes. Troponin and BNP normal. D-dimer normal making PE very unlikely. Viral testing negative. No obvious infiltrates seen on CXR, radiology report pending. UA with 3+ leukocytes and moderate
bacteria although patient denies any urinary symptoms.
Suspect bronchitis. Patient very concerned about pneumonia as she has had this before. Documented allergy to prednisone. Will start doxycycline which should cover for both UTI and respiratory infection. She has an appt with pulmonology in 3 days. ED
return precautions discussed. Patient in agreement with plan and was discharged in stable condition.
ED Attending Note
-
Portions of this chart may have been created with voice recognition software.� Occasional wrong word or��sound alike� substitutions may have occurred due to the inherent limitations of voice recognition software.
Discharge Plan
Departure
Patient Disposition: Home (Routine Discharge)
Date of Disposition: 05/09/24
Time of Disposition: 00:11
Patient with high blood pressure during this ER visit?: Yes
Discharge Problem:
Acute bronchitis, Shortness of breath
Instructions: Bronchitis in adults - ED discharge instructions
Prescriptions:
New
doxycycline hyclate 100 mg capsule
100 mg PO BID Qty: 14 0RF
No Action
clonazepam 1 mg Tablet
1 mg PO BID PRN (Reason: anxiety)
Patient Comments:
09/27/2023, pt. took 3 tablets yesterday but it is normally BIDPRN.
acetaminophen [Tylenol Extra Strength] 500 mg Tablet
1,000 mg PO DAILYPRN PRN (Reason: mild pain)
olanzapine 15 mg Tablet
15 mg PO DAILY
rosuvastatin 40 mg Tablet
40 mg PO HS
Wegovy 0.5 mg/0.5 mL Pen Injector
1.7 mg SC WE@0800
lisinopril 30 mg Tablet
30 mg PO HS
ibuprofen 400 mg tablet
400 mg PO Q6H PRN (Reason: Pain) Qty: 30 0RF
ipratropium-albuterol 0.5 mg-3 mg(2.5 mg base)/3 mL solution for nebulization
3 ml inhalation QID PRN (Reason: shortness of breath) Qty: 90 0RF
Referrals:
Chato Hilario, DO [Family Provider] -
Activity Restrictions/Additional Instructions:
Take antibiotics as prescribed. Continue using nebulizer treatment as needed for wheezing/tightness. Use honey and humidifier for cough.
Please follow-up with your family doctor and go to your pulmonology appt on . Return to the ER with any new or worsening symptoms.
Interventions
Interventions:
*Risk Screen - Suicide Last Done: 05/08/24 20:29
*General Assessment Last Done: 05/08/24 20:29
*Neglect/Abuse Screening Last Done: 05/08/24 20:29
ED- Fall Risk Assessment Last Done: 05/09/24 00:20
*ED COVID-19 Vaccine History Last Done: 05/08/24 21:47
*Nursing Disposition Last Done: 05/09/24 00:20
ED- Cardiac Assessment Last Done: 05/08/24 21:45
ED- Pulmonary Assessment Last Done: 05/08/24 21:45
Discharge Date and Time
Discharge Date/Time: 05/09/24 00:20
Print Language: CROATIAN
[2024-05-08 22:13] LABS: % Basophils 0.6 % (0-2); % Eosinophils 2.6 % (0-6); % Immature Granulocytes 0.1 % (0-0.5); % Lymphocytes 28.2 % (20.5-51.1); % Monocytes 7.6 % (1.7-9.3); % Neutrophils 60.9 % (42.2-75.2); Absolute Basophils 0.1 10^3/uL (0-0.2); Absolute Eosinophils 0.2 10^3/uL (0-0.7); Absolute Lymphocytes 2.3 10^3/uL (1.2-3.4); Absolute Monocytes 0.6 10^3/uL (0.1-0.6); Hematocrit 35.4 % (37.0-47.0); Hemoglobin 12.2 g/dL (12.0-16.0); Mean Corp Hgb Conc. 34.5 g/dL (33.0-37.0); Mean Corpuscular Volume 92.9 fL (81.0-99.0); Mean Platelet Volume 10.6 fL (7.4-10.4); Nucleated Red Blood Cells % 0 %; Platelet Count 202 10^3/uL (130-400); Red Blood Cell Count 3.81 10^6/uL (4.20-5.40); Red Cell Dist. Width 11.9 % (11.5-14.5); White Blood Cell Count 8.2 10^3/uL (4.8-10.8)
[2024-05-08 22:24] LABS: Urine Albumin 1+ (Neg - Trace); Urine Bilirubin Negative (Negative); Urine Character Clear (Clear); Urine Color Yellow; Urine Glucose Negative (Negative); Urine Ketone Negative (Negative); Urine Leukocyte 3+ (Negative); Urine Nitrite Negative (Negative); Urine Occult Blood Negative (Negative); Urine Urobilinogen 1+ (Neg - 1+)
[2024-05-08 22:29] LABS: D-Dimer 0.47 ug/mlFEU (0.00-0.50)
[2024-05-08 22:30] LABS: ALT (SGPT) 29 U/L (0-35); AST (SGOT) 22 U/L (14-36); Albumin 4.2 g/dl (3.5-5.0); Alkaline Phosphatase 79 U/L (38-126); Blood Urea Nitrogen 19 mg/dl (7-17); Carbon Dioxide 25 mmol/L (22-30); Chloride 108 mmol/L (98-107); Glucose 114 mg/dl (70-99); Sodium 140 mmol/L (135-145); Total Bilirubin 0.5 mg/dl (0.2-1.3); Total Protein 6.4 g/dl (6.3-8.2); eGFR > 60.00
[2024-05-08 22:31] LABS: COVID-19 Antigen Negative (Negative); Urine Bacteria Moderate (Negative); Urine Red Blood Cell 0-2 /HPF (0-2); Urine White Cell 21-25 /HPF (0-5)
[2024-05-08 22:36] LABS: NT-proBNP 121 pg/ml; Troponin I < 0.012 ng/ml
[2024-05-09 00:20] VITALS: BP 158/80
== END 2024-05-09 00:20 | disposition home or self-care (01) ==
LOC: EMR 20:29
PROVIDERS: Physician Assistant; EMERGENCY PHYSICIAN Emergency Medicine; FAMILY PHYSICIAN Family Medicine
DX: J20.9 Acute bronchitis, unspecified (principal); J44.0 Chronic obstructive pulmonary disease with (acute) lower respiratory infection; E78.00 Pure hypercholesterolemia, unspecified; Z87.891 Personal history of nicotine dependence; I10 Essential (primary) hypertension; Z86.73 Personal history of transient ischemic attack (TIA), and cerebral infarction without residual deficits
CPT/HCPCS: 99285; 71046; 80053; 81003; 81015; 83880; 84484; 85025; 85379; 87086; 87502; 87811; 93005

== ENCOUNTER → 2024-05-11 06:34 | Outpatient (REF) | payer MEDICARE, OTHER, SELFPAY ==
[2024-05-11 07:45] LABS: Urine Albumin Negative (Neg - Trace); Urine Bilirubin Negative (Negative); Urine Character Clear (Clear); Urine Color Yellow; Urine Glucose Negative (Negative); Urine Ketone Negative (Negative); Urine Leukocyte 1+ (Negative); Urine Nitrite Negative (Negative); Urine Occult Blood Negative (Negative); Urine Specific Gravity 1.015 (<1.030); Urine Urobilinogen Negative (Neg - 1+)
[2024-05-11 08:15] LABS: Urine Urothelial Cell 0-2 /LPF (FEW)
[2024-05-11 08:16] LABS: Urine Bacteria Few (Negative); Urine Red Blood Cell 0-2 /HPF (0-2)
== END ==
LOC: REG 06:34
PROVIDERS: ATTENDING PHYSICIAN Nurse Practitioner Family
DX: R80.0 Isolated proteinuria (principal); N39.0 Urinary tract infection, site not specified
CPT/HCPCS: 81003; 81015; 87086

== ENCOUNTER 2024-06-15 15:21 | Emergency (ER) | payer MEDICARE, OTHER, SELFPAY ==
[2024-06-15 15:32] VITALS: BP 163/93
[2024-06-15 16:00] VITALS: BP 129/85
[2024-06-15 16:32] LABS: Urine Albumin Negative (Neg - Trace); Urine Bilirubin Negative (Negative); Urine Character Clear (Clear); Urine Color Yellow; Urine Glucose Negative (Negative); Urine Ketone Negative (Negative); Urine Leukocyte 3+ (Negative); Urine Nitrite Negative (Negative); Urine Occult Blood Negative (Negative); Urine Specific Gravity 1.015 (<1.030); Urine Urobilinogen Negative (Neg - 1+); Urine pH 6.5 (5.0-9.0)
[2024-06-15 16:44] LABS: Urine Bacteria Moderate (Negative); Urine Red Blood Cell 0-2 /HPF (0-2); Urine White Cell 16-20 /HPF (0-5)
--- NOTE | 2024-06-15 18:08 | ED.GENMED ---
History of Present Illness
General
Chief Complaint: Musculo-Skeletal Complaint
Time Seen by Provider: 06/15/24 15:42
History of Present Illness
History of Present Illness:
58-year-old female presents the emergency department for evaluation of right-sided hip discomfort has been ongoing for the past 3 days. Denies any traumas. She has no pain when seated, only when walking. No distal paresthesias. She also notes
that she had sediment in her urine yesterday that seem to clear today. No dysuria or hematuria
Past History
Past History
ED Past Medical History: COPD (Mild), CVA (TIA), HTN, Hypercholesterolemia, Psychiatric (Anxiety depression) and Other (Anemia)
ED Past Surgical History: Other (cataracts, Dental Implants)
Patient has exhibited threatening behavior?: No
PSI?: No
Social History
Tobacco: Former smoker
Alcohol: None
Drug: None
Personal: Single
Living: alone
Employment: Employed
Family History
Family History: Other (Noncontributory)
Review of Systems
Review of Systems
Allergies reviewed?: Yes
All Other Systems: ROS reviewed and negative except as documented in HPI and ROS
Phy Exam
Physical Exam
Physical Exam:
GEN: Well appearing, NAD, WDWN
HEENT: Oral mucosa moist, no scleral icterus
Cardiac: Regular rate
Lung: No respiratory distress, no tachypnea
Abdomen: Soft, grossly nontender
MSK: No gross deformity or injuries, normal hip range of motion bilaterally, no crepitus, no focal tenderness to the right hip or gluteal region, range of motion is unrestricted without pain
Skin: Good color, no pallor or jaundice, no rashes
Neuro: AO x3, moves all extremities freely
Psych: Calm, cooperative
Course
Orders/Labs/Results
Orders:
Orders
06/15/24 16:12
CR Hip - RT w/wo Pel 2-3 Vw* Urgent
Comment:
Reason For Exam: non traumatic pain
Include a pelvis x-ray?: Yes
06/15/24 16:22
Urinalysis Reflex To Culture Urgent
Date Specimen was Collected: 06/15/24
Time Specimen was Collected: 16:20
Urine Microscopic Reflex Cult Urgent
Urine Culture Urgent
AIDEN Source: U
Specimen Description:
Date Specimen was Collected: 06/15/24
Time Specimen was Collected: 16:20
Abnormal Lab Results
06/15/24
16:22
Leukocyte Esterase Rfl 3+ A
(Negative)
Urine WBC (Reflex) 16-20 A /HPF
(0-5)
Urine Bacteria (Reflex) Moderate A
(Negative)
Vital Signs
Initial and Last Documented VS:
Initial Vital Signs
Temp Pulse Resp BP Pulse Ox
98.6 F 78 16 163/93 96
06/15/24 15:32 06/15/24 15:32 06/15/24 15:32 06/15/24 15:32 06/15/24 15:32
Last Documented Vital Signs
Temp Pulse Resp BP Pulse Ox
98.6 F 75 20 129/85 97
06/15/24 15:32 06/15/24 16:00 06/15/24 16:00 06/15/24 16:00 06/15/24 16:00
MDM/Problems Addressed
MDM/Problems Addressed:
Urinalysis does show pyuria however she has no voiding symptoms at this time thus we will wait for culture, no antibiotics initiated however would recommend treatment if culture is positive. As far as hip pain is concerned I am unable to reproduce
any pain on exam, x-ray is unremarkable
*Critical Care Note
Total Time (30-74mins, 75-104mins- exclusive of procedures): Not Applicable
ED Attending Note
-
Portions of this chart may have been created with voice recognition software.� Occasional wrong word or��sound alike� substitutions may have occurred due to the inherent limitations of voice recognition software.
Discharge Plan
Departure
Patient Disposition: Home (Routine Discharge)
Date of Disposition: 06/15/24
Time of Disposition: 18:08
Patient with high blood pressure during this ER visit?: No
Discharge Problem:
Pyuria
Instructions: Hip Pain ED
Prescriptions:
No Action
clonazepam 1 mg Tablet
1 mg PO BID PRN (Reason: anxiety)
Patient Comments:
09/27/2023, pt. took 3 tablets yesterday but it is normally BIDPRN.
acetaminophen [Tylenol Extra Strength] 500 mg Tablet
1,000 mg PO DAILYPRN PRN (Reason: mild pain)
olanzapine 15 mg Tablet
15 mg PO DAILY
rosuvastatin 40 mg Tablet
40 mg PO HS
Wegovy 0.5 mg/0.5 mL Pen Injector
1.7 mg SC WE@0800
lisinopril 30 mg Tablet
30 mg PO HS
ibuprofen 400 mg tablet
400 mg PO Q6H PRN (Reason: Pain) Qty: 30 0RF
ipratropium-albuterol 0.5 mg-3 mg(2.5 mg base)/3 mL solution for nebulization
3 ml inhalation QID PRN (Reason: shortness of breath) Qty: 90 0RF
doxycycline hyclate 100 mg capsule
100 mg PO BID Qty: 14 0RF
Referrals:
Chato Hilario DO [Family Provider] -
Activity Restrictions/Additional Instructions:
Your urinalysis suggest a urinary tract infection however this could also reflect skin contamination. At this time you have no symptoms and thus I feel it is prudent to wait for a urine culture to determine if you have a UTI and whether it is worth
treating with antibiotics
Interventions
Interventions:
*Risk Screen - Suicide Last Done: 06/15/24 15:32
*General Assessment Last Done: 06/15/24 16:00
*Neglect/Abuse Screening Last Done: 06/15/24 16:00
*ED COVID-19 Vaccine History Last Done: 06/15/24 16:00
*Nursing Disposition Last Done: 06/15/24 18:38
ED-Musculoskeletal Assessment Last Done: 06/15/24 16:00
Discharge Date and Time
Discharge Date/Time: 06/15/24 18:40
Print Language: CHINESE
== END 2024-06-15 18:40 | disposition home or self-care (01) ==
LOC: EMR 15:21
PROVIDERS: Physician Assistant; EMERGENCY PHYSICIAN Emergency Medicine; FAMILY PHYSICIAN Family Medicine
DX: M25.551 Pain in right hip (principal); R82.81 Pyuria; J44.9 Chronic obstructive pulmonary disease, unspecified; E78.00 Pure hypercholesterolemia, unspecified; I10 Essential (primary) hypertension; Z86.73 Personal history of transient ischemic attack (TIA), and cerebral infarction without residual deficits; Z87.891 Personal history of nicotine dependence
CPT/HCPCS: 99284; 73502; 81003; 81015; 87086

== ENCOUNTER 2024-06-22 15:51 | Emergency (ER) | payer MEDICARE, OTHER, SELFPAY ==
[2024-06-22 15:54] VITALS: BP 147/92
--- NOTE | 2024-06-22 16:22 | ED.GENMED ---
History of Present Illness
General
Chief Complaint: Depression
Source: patient
Exam Limitations: none
Time Seen by Provider: 06/22/24 16:10
History of Present Illness
History of Present Illness:
See MDM
Past History
Past History
ED Past Medical History: COPD (Mild), CVA (TIA), HTN, Hypercholesterolemia, Psychiatric (Anxiety depression) and Other (Anemia)
ED Past Surgical History: Other (cataracts, Dental Implants)
Patient has exhibited threatening behavior?: No
PSI?: No
Social History
Tobacco: Former smoker
Alcohol: None
Drug: None
Personal: Single
Living: alone
Employment: Employed
Family History
Family History: Other (Noncontributory)
Phy Exam
Physical Exam
Physical Exam:
See MDM
Course
Orders/Labs/Results
Orders:
Orders
06/22/24 16:49
Crisis Consult Urgent
Reason for Consult: depression
Vital Signs
Initial and Last Documented VS:
Initial Vital Signs
Temp Pulse Resp BP Pulse Ox
98.2 F 71 18 147/92 96
06/22/24 15:54 06/22/24 15:54 06/22/24 15:54 06/22/24 15:54 06/22/24 15:54
Last Documented Vital Signs
Temp Pulse Resp BP Pulse Ox
98.2 F 71 18 147/92 96
06/22/24 15:54 06/22/24 15:54 06/22/24 15:54 06/22/24 15:54 06/22/24 15:54
MDM/Problems Addressed
Differential Diagnosis Includes:
HPI and MDM Narrative:
58-year-old female presenting for crisis evaluation. Patient has been feeling more paranoid over the past several days. She feels as though someone is messing with her hair, breaking into her apartment, messing with her car. She is also uneasy
about her psychiatrist wanting to taper her off Zyprexa and start a different medicine. Patient denies suicidal homicidal thoughts. She does not want go inpatient but wanted to speak to the crisis team
Physical exam
General: Well appearing and non-toxic
HEENT: protecting airway
Neck: appears supple
CV: No evidence of cyanosis
Resp: No accessory muscle use
Abd: Non-distended
Extremities: No deformities
Neuro: alert
Psych: Normal affect
Skin: Intact
Problems Addressed including Acute and Chronic Conditions affecting care:
1. Increased depression and paranoia
Acuity: acute
Prognosis: stable
Details: Patient does not appear to be a danger to herself. Will have crisis evaluate
Updates
5:40 PM patient requesting to leave. Crisis has not evaluated her but she does not appear to be a threat to herself
Differential Diagnosis (but not limited to): Paranoia, depression
Testing considered: UDS but she does not appear to be under the influence or intoxicated
Drug therapy (if applicable): OTC meds, please see d/c instruction regarding Rx drugs
Amount and/or Complexity of Data Reviewed
Clinical info obtained from: Patient
External data reviewed: N/A
Labs I independently reviewed (but not limited to): N/A
Radiology: N/A
Pulse Ox: not hypoxic
EKG independently reviewed: N/A
Supervisor Shed Workers: N/A
Critical Care: N/A
Risk of Complication:
Social Determinants of health: Good social support
Discussed with other providers: N/A
Escalation of Care includes Admit/Obs: After being observed in the Emergency Department, pt stable for discharge.
Occasional wrong word or 'sound a like' substitutions may have occurred due to the inherent limitations of voice recognition software. Read the chart carefully and recognize, using context, where substitutions have occurred.
*Critical Care Note
Total Time (30-74mins, 75-104mins- exclusive of procedures): Not Applicable
ED Attending Note
-
Portions of this chart may have been created with voice recognition software.� Occasional wrong word or��sound alike� substitutions may have occurred due to the inherent limitations of voice recognition software.
Discharge Plan
Departure
Patient Disposition: Home (Routine Discharge)
Date of Disposition: 06/22/24
Time of Disposition: 17:42
Patient with high blood pressure during this ER visit?: Yes
Discharge Problem:
Depression
Instructions: BLOOD PRESSURE
Prescriptions:
No Action
clonazepam 1 mg Tablet
1 mg PO BID PRN (Reason: anxiety)
Patient Comments:
09/27/2023, pt. took 3 tablets yesterday but it is normally BIDPRN.
acetaminophen [Tylenol Extra Strength] 500 mg Tablet
1,000 mg PO DAILYPRN PRN (Reason: mild pain)
olanzapine 15 mg Tablet
15 mg PO DAILY
rosuvastatin 40 mg Tablet
40 mg PO HS
Wegovy 0.5 mg/0.5 mL Pen Injector
1.7 mg SC WE@0800
lisinopril 30 mg Tablet
30 mg PO HS
ibuprofen 400 mg tablet
400 mg PO Q6H PRN (Reason: Pain) Qty: 30 0RF
ipratropium-albuterol 0.5 mg-3 mg(2.5 mg base)/3 mL solution for nebulization
3 ml inhalation QID PRN (Reason: shortness of breath) Qty: 90 0RF
doxycycline hyclate 100 mg capsule
100 mg PO BID Qty: 14 0RF
Referrals:
Chato Hilario DO [Family Provider] -
Activity Restrictions/Additional Instructions:
Please return for any worsening symptoms.
You may return at any time if you have further concerns.
Please follow up with your primary care doctor and psychiatrist at the first available appointment, preferably this week.
Thank you for choosing [facility].
Interventions
Interventions:
*Risk Screen - Suicide Last Done: 06/22/24 15:54
*General Assessment Last Done: 06/22/24 15:54
*Neglect/Abuse Screening Last Done: 06/22/24 15:54
*ED- Fall Risk Assessment Last Done: 06/22/24 15:54
*ED COVID-19 Vaccine History Last Done: 06/22/24 15:54
ED-Psychological Assessment Last Done: 06/22/24 16:37
Discharge Date and Time
Print Language: GRENADIAN
[2024-06-22 16:37] VITALS: BMI 30.9
== END 2024-06-22 17:55 | disposition home or self-care (01) ==
LOC: EMR 15:51
PROVIDERS: EMERGENCY PHYSICIAN Student in an Organized Health Care Education/Training Program; FAMILY PHYSICIAN Family Medicine
DX: F32.A Depression, unspecified (principal); J44.9 Chronic obstructive pulmonary disease, unspecified; I10 Essential (primary) hypertension; E78.00 Pure hypercholesterolemia, unspecified; Z86.73 Personal history of transient ischemic attack (TIA), and cerebral infarction without residual deficits; Z87.891 Personal history of nicotine dependence
CPT/HCPCS: 99282

== ENCOUNTER 2024-08-10 14:48 | Emergency (ER) | payer MEDICARE, OTHER, SELFPAY ==
[2024-08-10 14:53] VITALS: BP 162/96
[2024-08-10 18:24] VITALS: BP 132/90
--- NOTE | 2024-08-10 18:30 | EDRN ---
Patient stated that she came to the hospital because she was concerned about the possible side effects of Rexulti that she was starting today. Patient stated that she took all her PM medicines while in the waiting room including the Rexulti and she
feels fine. Patient wants to go home.
--- NOTE | 2024-08-10 19:37 | ED.GENMED ---
History of Present Illness
General
Chief Complaint: Anxiety
Source: patient
Exam Limitations: none
Time Seen by Provider: 08/10/24 19:20
History of Present Illness
History of Present Illness:
58-year-old female with history of anxiety presents with concern about taking her new medication that was prescribed to her about a month ago. She was anxious about the potential side effects she has been weaning off Zyprexa and was due to start
Rexulti. She actually took her Rexulti today for the first time and she she feels much better. She states her anxiety is improved she is denying suicidal homicidal thoughts. She is requesting to see the crisis team. No other complaints at this
time
Past History
Past History
ED Past Medical History: COPD (Mild), CVA (TIA), HTN, Hypercholesterolemia, Psychiatric (Anxiety depression) and Other (Anemia)
ED Past Surgical History: Other (cataracts, Dental Implants)
Patient has exhibited threatening behavior?: No
PSI?: No
Social History
Tobacco: Former smoker
Alcohol: None
Drug: None
Personal: Single
Living: alone
Employment: Employed
Family History
Family History: Other (Noncontributory)
Phy Exam
Physical Exam
Physical Exam:
General: Well-appearing female no acute respiratory distress HEENT: Normocephalic atraumatic
Psychiatric exam: Calm cooperative denying thoughts of harming self or others or hallucinations.
Neurologic exam: Normal gait conversing appropriately no tremor
Course
Orders/Labs/Results
Orders:
Orders
08/10/24 14:57
Crisis Consult Urgent
Reason for Consult: anxiety
Vital Signs
Initial and Last Documented VS:
Initial Vital Signs
Temp Pulse Resp BP Pulse Ox
98.5 F 78 18 162/96 96
08/10/24 14:53 08/10/24 14:53 08/10/24 14:53 08/10/24 14:53 08/10/24 14:53
Last Documented Vital Signs
Temp Pulse Resp BP Pulse Ox
98.5 F 72 18 132/90 97
08/10/24 14:53 08/10/24 18:24 08/10/24 18:24 08/10/24 18:24 08/10/24 18:24
MDM/Problems Addressed
Differential Diagnosis Includes:
Patient initially with anxiety about taking new medication. She did take this medication and feels much better. She spoke with crisis. As far as crisis is concerned, no indication for psychiatric admission. Stable for discharge. She did request
a note for work. She wanted a note clearing her for the next 5 shifts. She works part-time this takes next month.
*Critical Care Note
Total Time (30-74mins, 75-104mins- exclusive of procedures): Not Applicable
ED Attending Note
-
Portions of this chart may have been created with voice recognition software.� Occasional wrong word or��sound alike� substitutions may have occurred due to the inherent limitations of voice recognition software.
Discharge Plan
Departure
Patient Disposition: Home (Routine Discharge)
Date of Disposition: 08/10/24
Time of Disposition: 19:39
Patient with high blood pressure during this ER visit?: No
Discharge Problem:
Anxiety
Prescriptions:
No Action
clonazepam 1 mg Tablet
1 mg PO BID PRN (Reason: anxiety)
Patient Comments:
09/27/2023, pt. took 3 tablets yesterday but it is normally BIDPRN.
acetaminophen [Tylenol Extra Strength] 500 mg Tablet
1,000 mg PO DAILYPRN PRN (Reason: mild pain)
olanzapine 15 mg Tablet
15 mg PO DAILY
rosuvastatin 40 mg Tablet
40 mg PO HS
Wegovy 0.5 mg/0.5 mL Pen Injector
1.7 mg SC WE@0800
lisinopril 30 mg Tablet
30 mg PO HS
ibuprofen 400 mg tablet
400 mg PO Q6H PRN (Reason: Pain) Qty: 30 0RF
ipratropium-albuterol 0.5 mg-3 mg(2.5 mg base)/3 mL solution for nebulization
3 ml inhalation QID PRN (Reason: shortness of breath) Qty: 90 0RF
doxycycline hyclate 100 mg capsule
100 mg PO BID Qty: 14 0RF
Referrals:
Chato Hilario, DO [Family Provider] -
Stand Alone Forms: Return to Work
Activity Restrictions/Additional Instructions:
Please return here for worsening symptoms otherwise follow-up with your doctors
Interventions
Interventions:
*Risk Screen - Suicide Last Done: 08/10/24 14:53
*General Assessment Last Done: 08/10/24 14:53
*Neglect/Abuse Screening Last Done: 08/10/24 18:21
*ED- Fall Risk Assessment Last Done: 08/10/24 18:21
*ED COVID-19 Vaccine History Last Done: 08/10/24 18:21
ED-Psychological Assessment Last Done: 08/10/24 18:21
Discharge Date and Time
Print Language: UPPER SORBIAN
== END 2024-08-10 20:00 | disposition home or self-care (01) ==
LOC: EMR 14:48
PROVIDERS: EMERGENCY PHYSICIAN Student in an Organized Health Care Education/Training Program; FAMILY PHYSICIAN Family Medicine
DX: F41.9 Anxiety disorder, unspecified (principal); E78.00 Pure hypercholesterolemia, unspecified; I10 Essential (primary) hypertension; J44.9 Chronic obstructive pulmonary disease, unspecified; Z86.73 Personal history of transient ischemic attack (TIA), and cerebral infarction without residual deficits; Z87.891 Personal history of nicotine dependence
CPT/HCPCS: 99282

== ENCOUNTER → 2024-08-28 12:36 | Outpatient (REF) | payer MEDICARE, OTHER, SELFPAY | LOC: HWRAD 12:36 | PROVIDERS: ATTENDING PHYSICIAN Nurse Practitioner Family; FAMILY PHYSICIAN Family Medicine | DX: Z13.820 Encounter for screening for osteoporosis (principal) | CPT/HCPCS: 77080 ==

== ENCOUNTER 2024-10-11 10:35 | Emergency (ER) | payer MEDICARE, OTHER, SELFPAY ==
[2024-10-11 10:55] VITALS: BP 167/89
[2024-10-11 12:02] VITALS: BMI 32.0
--- NOTE | 2024-10-11 12:03 | ED.GENMED ---
History of Present Illness
General
Chief Complaint: DVT/Possible Blood Clot
Source: patient
Exam Limitations: none
Time Seen by Provider: 10/11/24 11:20
Nursing documentation reviewed up to this point in time: agreed with
History of Present Illness
History of Present Illness:
Patient is a 58-year-old female who presents to the emergency department with left calf pain. She states when she woke up at 5 AM and was moving around she noticed a pain in her left calf. This was not present last night. She has a somewhat hard
time describing the type of pain although states it is not severe and more of a cramping in her left calf. Pain seems worse with weightbearing and ambulating however is present mildly at rest. Patient is concerned that she may have a blood clot
and came to the emergency department for further evaluation.
She denies any numbness/tingling in left lower extremity. No weakness. She denies any known trauma or inciting injury. She denies any associated fever or chills.
Patient denies any recent travel or recent surgeries. No malignancy. No personal or family history of blood clots or clotting disorders.
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
Past History
Past History
ED Past Medical History: COPD (Mild), CVA (TIA), HTN, Hypercholesterolemia, Psychiatric (Anxiety depression) and Other (Anemia)
ED Past Surgical History: Other (cataracts, Dental Implants)
Patient has exhibited threatening behavior?: No
PSI?: No
Social History
Tobacco: Former smoker
Alcohol: None
Drug: None
Personal: Single
Living: alone
Employment: Employed
Family History
Family History: Other (Noncontributory)
Review of Systems
Review of Systems
Allergies reviewed?: Yes
All Other Systems: ROS reviewed and negative except as documented in HPI and ROS
Phy Exam
Physical Exam
Physical Exam:
Vitals: Hypertensive, otherwise vital signs stable. Afebrile
General: Patient is well appearing, no acute distress. Nontoxic appearing
Skin: Warm and dry, no rashes or lesions
Head: Normocephalic, atraumatic
Throat: Protecting airway
Neck: Normal ROM, no cervical spine tenderness
Cardiac: Regular rate and rhythm. No murmurs
Pulm: No apparent respiratory distress. Lungs clear bilaterally
Abdomen: Nondistended
Extremities: Very minimal tenderness to left distal calf without any erythema, edema, or warmth. No palpable deformity. Negative Homans' sign of the left lower extremity. 2+ palpable left DP and left PT pulse with normal sensation. Capillary
refill WNL.
Neuro: Grossly intact
Psychiatric: Normal affect.
Course
Orders/Labs/Results
Orders:
Orders
10/11/24 10:57
US Periph Venous LOWER Ext LT Urgent
Comment:
Reason For Exam: pain to left calf started at 5am
10/11/24 12:12
Basic Metabolic Panel Urgent
Complete Blood Count/With Diff Urgent
Abnormal Lab Results
10/11/24
12:12
RBC 4.04 L 10^6/uL
(4.20-5.40)
MCH 32.2 H pg
(27.0-31.0)
Chloride 109 H mmol/L
(98-107)
10/11/24 12:12
10/11/24 12:12
Vital Signs
Initial and Last Documented VS:
Initial Vital Signs
Temp Pulse Resp BP Pulse Ox
98.4 F 74 16 167/89 98
10/11/24 10:55 10/11/24 10:55 10/11/24 10:55 10/11/24 10:55 10/11/24 10:55
Last Documented Vital Signs
Temp Pulse Resp BP Pulse Ox
97.8 F 68 18 151/87 99
10/11/24 13:34 10/11/24 13:34 10/11/24 13:34 10/11/24 13:34 10/11/24 13:34
MDM/Problems Addressed
Differential Diagnosis Includes:
Not limited to: Muscle strain/muscle spasm, acute dehydration, ruptured Trejo's cyst, DVT, etc.
MDM/Problems Addressed:
58-year-old female presenting with left calf pain which she noticed this morning, worse with ambulation. No known inciting trauma or injury. No numbness/tingling of LLE. No recent travel, surgeries, or recent immobilization. Vitals as above. On exam
� patient very well appearing, in no apparent distress. Cardio/pulmonary assessment unremarkable. She does have very mild tenderness to the left distal calf without any erythema, warmth, or edema. LLE neurovascular intact with negative nargis sign.
An ultrasound was ordered in triage which reveals an occlusive thrombus in the left soleal vein.
While this vein is within the deep system � it is distal and relatively low risk. Considered anti-platelet therapy with aspirin and very close follow-up with repeat ultrasound imaging vs oral anticoagulation with Eliquis.
This would be considered an unprovoked DVT. Patient without additional risk factor/comorbidities for oral anticoagulation.
After lengthy shared decision-making discussion with patient � will proceed with oral anticoagulation with Eliquis. Basic labs were checked without any acute abnormalities.
Prescription sent for one month supply of Eliquis. Advised close follow up with primary care and hematology. Very strict return precautions discussed. Patient comfortable with discharge home.
Chronic conditions affecting care:
Hypertension
Acute Exacerbation and/or Progression of Chronic Illness:
Acutely hypertensive
*Radiology
Radiology exam reviewed: radiology read reviewed
*Pulse Oximetry
SaO2: 98
Oxygen Mode of Delivery: Room air
Patient hypoxic: no
*EKG
Interpreted by ED Provider?: NA
*Senior Technical Support Analyst Interpretation
Rate: Senior Technical Support Analyst- N/A
*Critical Care Note
Total Time (30-74mins, 75-104mins- exclusive of procedures): Not Applicable
ED Attending Note
-
Portions of this chart may have been created with voice recognition software.� Occasional wrong word or��sound alike� substitutions may have occurred due to the inherent limitations of voice recognition software.
Discharge Plan
Departure
Patient Disposition: Home (Routine Discharge)
Date of Disposition: 10/11/24
Time of Disposition: 13:15
Patient with high blood pressure during this ER visit?: Yes
Condition: Good
Discharge Problem:
Deep vein thrombosis (DVT) of distal vein of left lower extremity
Instructions: Deep Vein Thrombosis (Blood Clots in the Legs) (DC), BLOOD PRESSURE
Prescriptions:
New
Eliquis 5 mg tablet
5 mg PO BID Qty: 74 0RF
Rx Instructions:
Take 10mg (2 tabs) PO BID x 7 days then 5mg PO BID
No Action
clonazepam 1 mg Tablet
1 mg PO BID PRN (Reason: anxiety)
Patient Comments:
09/27/2023, pt. took 3 tablets yesterday but it is normally BIDPRN.
acetaminophen [Tylenol Extra Strength] 500 mg Tablet
1,000 mg PO DAILYPRN PRN (Reason: mild pain)
olanzapine 15 mg Tablet
15 mg PO DAILY
rosuvastatin 40 mg Tablet
40 mg PO HS
Wegovy 0.5 mg/0.5 mL Pen Injector
1.7 mg SC WE@0800
lisinopril 30 mg Tablet
30 mg PO HS
ibuprofen 400 mg tablet
400 mg PO Q6H PRN (Reason: Pain) Qty: 30 0RF
ipratropium-albuterol 0.5 mg-3 mg(2.5 mg base)/3 mL solution for nebulization
3 ml inhalation QID PRN (Reason: shortness of breath) Qty: 90 0RF
doxycycline hyclate 100 mg capsule
100 mg PO BID Qty: 14 0RF
Referrals:
Chato Hilario DO [Family Provider, [facility]] - Next open appointment
Johnny Dejesus MD [Active, Hematology / Oncology] - Follow up in 5-7 days
Activity Restrictions/Additional Instructions:
RETURN TO THE EMERGENCY DEPARTMENT ANY FEVER, CHILLS, WORSENING REDNESS, SWELLING, PAIN IN LEFT LOWER EXTREMITY, CHEST PAIN OR SHORTNESS OF BREATH, NUMBNESS/TINGLING IN LEFT LEG OR FOOT, WORSENING CURRENT SYMPTOMS, OR ANY OTHER CONCERNS
- As discussed�you were found to have an occlusive blood clot in your left soleal vein. A prescription for Eliquis has been sent to your pharmacy. You should take 10 mg twice a day for 1 week and then decrease to 5 mg twice a day.
- Please follow-up with your primary care provider and landscape nurseryman for further evaluation/management and continuation of anticoagulation prescription.
-You can take Tylenol as needed for pain.
- Please avoid any NSAIDs including Motrin, Aleve, naproxen while on Eliquis. Please be cautious of any traumatic event and monitor for any signs of bleeding and return promptly to the emergency department
Monitor your symptoms closely and return to the emergency department with any acute worsening/new symptoms or any other concerns
Interventions
Interventions:
*Risk Screen - Suicide Last Done: 10/11/24 10:55
*General Assessment Last Done: 10/11/24 12:02
*Neglect/Abuse Screening Last Done: 10/11/24 10:55
*ED- Fall Risk Assessment Last Done: 10/11/24 12:02
*ED COVID-19 Vaccine History Last Done: 10/11/24 12:02
*Nursing Disposition Last Done: 10/11/24 13:34
ED- Cardiac Assessment Last Done: 10/11/24 12:02
ED- Pulmonary Assessment Last Done: 10/11/24 12:02
ED-Peripheral Vascular Assessment Last Done: 10/11/24 12:02
ED-Skin Assessment Last Done: 10/11/24 12:02
Discharge Date and Time
Discharge Date/Time: 10/11/24 13:25
Print Language: LAO
[2024-10-11 12:21] LABS: Hematocrit 37.2 % (37.0-47.0); Hemoglobin 13.0 g/dL (12.0-16.0); Mean Corp Hgb Conc. 34.9 g/dL (33.0-37.0); Mean Corpuscular Volume 92.1 fL (81.0-99.0); Nucleated Red Blood Cells % 0 %; Platelet Count 184 10^3/uL (130-400); Red Cell Dist. Width 12.1 % (11.5-14.5)
[2024-10-11 12:36] LABS: Blood Urea Nitrogen 15 mg/dl (7-17); Calcium 9.3 mg/dl (8.4-10.2); Carbon Dioxide 30 mmol/L (22-30); Chloride 109 mmol/L (98-107); Estimated Creatinine Clearance 80 ml/min; Glucose 94 mg/dl (70-99); Potassium 4.6 mmol/L (3.5-5.1); Sodium 140 mmol/L (135-145); eGFR > 60.00
[2024-10-11 12:48] VITALS: BP 151/87
--- NOTE | 2024-10-11 13:33 | EDRN ---
Reviewed discharge instructions with patient. Verbalized understanding. Ambulated with steady gait to the lobby.
[2024-10-11 13:34] VITALS: BP 151/87
== END 2024-10-11 13:25 | disposition home or self-care (01) ==
LOC: EMR 10:35
PROVIDERS: Physician Assistant; EMERGENCY PHYSICIAN Emergency Medicine; FAMILY PHYSICIAN Family Medicine
DX: I82.4Z2 Acute embolism and thrombosis of unspecified deep veins of left distal lower extremity (principal); J44.9 Chronic obstructive pulmonary disease, unspecified; I10 Essential (primary) hypertension; E78.00 Pure hypercholesterolemia, unspecified; Z79.01 Long term (current) use of anticoagulants; Z86.73 Personal history of transient ischemic attack (TIA), and cerebral infarction without residual deficits; Z87.891 Personal history of nicotine dependence
CPT/HCPCS: 99284; 80048; 85025; 93971; 99283

== ENCOUNTER 2024-10-14 21:51 | Emergency (ER) | payer MEDICARE, OTHER, SELFPAY ==
[2024-10-14 21:54] VITALS: BP 161/96
[2024-10-14 22:12] LABS: Hematocrit 36.7 % (37.0-47.0); Hemoglobin 13.0 g/dL (12.0-16.0); Mean Corp Hgb Conc. 35.4 g/dL (33.0-37.0); Mean Corpuscular Volume 91.5 fL (81.0-99.0); Nucleated Red Blood Cells % 0 %; Platelet Count 218 10^3/uL (130-400); Red Cell Dist. Width 12.1 % (11.5-14.5)
[2024-10-14 22:46] LABS: ALT (SGPT) 40 U/L (0-35); AST (SGOT) 24 U/L (14-36); Albumin 4.5 g/dl (3.5-5.0); Alkaline Phosphatase 72 U/L (38-126); Blood Urea Nitrogen 14 mg/dl (7-17); Calcium 9.6 mg/dl (8.4-10.2); Carbon Dioxide 28 mmol/L (22-30); Chloride 104 mmol/L (98-107); Glucose 86 mg/dl (70-99); Potassium 4.2 mmol/L (3.5-5.1); Sodium 138 mmol/L (135-145); Total Protein 7.2 g/dl (6.3-8.2); eGFR > 60.00
== END 2024-10-14 22:42 | disposition left against medical advice (07) ==
LOC: EMR 21:51
PROVIDERS: Emergency Medicine
DX: R10.9 Unspecified abdominal pain (principal); K62.5 Hemorrhage of anus and rectum; N93.9 Abnormal uterine and vaginal bleeding, unspecified; Z53.21 Procedure and treatment not carried out due to patient leaving prior to being seen by health care provider
CPT/HCPCS: 80053; 85025

== ENCOUNTER 2024-10-31 14:36 | Emergency (ER) | payer MEDICARE, OTHER, SELFPAY ==
[2024-10-31 14:41] VITALS: BP 167/85
[2024-10-31 15:07] LABS: Hematocrit 35.5 % (37.0-47.0); Hemoglobin 12.6 g/dL (12.0-16.0); Mean Corp Hgb Conc. 35.5 g/dL (33.0-37.0); Mean Corpuscular Volume 91.5 fL (81.0-99.0); Nucleated Red Blood Cells % 0 %; Platelet Count 192 10^3/uL (130-400); Red Cell Dist. Width 12.0 % (11.5-14.5)
[2024-10-31 15:16] LABS: INR 1.03; PT 13.9 Sec (11.4-14.6)
[2024-10-31 15:25] LABS: ALT (SGPT) 20 U/L (0-35); AST (SGOT) 18 U/L (14-36); Albumin 3.9 g/dl (3.5-5.0); Alkaline Phosphatase 67 U/L (38-126); Blood Urea Nitrogen 16 mg/dl (7-17); Calcium 9.1 mg/dl (8.4-10.2); Carbon Dioxide 27 mmol/L (22-30); Chloride 109 mmol/L (98-107); Glucose 136 mg/dl (70-99); Potassium 4.0 mmol/L (3.5-5.1); Sodium 140 mmol/L (135-145); Total Protein 6.2 g/dl (6.3-8.2); eGFR > 60.00
[2024-10-31 15:38] LABS: Troponin I < 0.012 ng/ml
[2024-10-31 16:27] VITALS: BP 156/92
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
[2024-10-31 17:00] VITALS: BP 156/91
[2024-10-31 17:09] VITALS: BMI 32.1
[2024-10-31] MEDS: DECADRON 10 MG PO (17:43)
== END 2024-10-31 17:59 | disposition home or self-care (01) ==
LOC: EMR 14:36
PROVIDERS: Emergency Medicine; EMERGENCY PHYSICIAN Emergency Medicine; FAMILY PHYSICIAN Family Medicine
DX: R06.00 Dyspnea, unspecified (principal); E78.00 Pure hypercholesterolemia, unspecified; I10 Essential (primary) hypertension; J44.9 Chronic obstructive pulmonary disease, unspecified; Z79.01 Long term (current) use of anticoagulants; Z86.718 Personal history of other venous thrombosis and embolism; Z86.73 Personal history of transient ischemic attack (TIA), and cerebral infarction without residual deficits; Z87.891 Personal history of nicotine dependence
CPT/HCPCS: 99283; 80053; 84484; 85025; 85610; 93005

== ENCOUNTER → 2024-12-07 11:17 | Outpatient (REF) | payer MEDICARE, OTHER, SELFPAY ==
[2024-12-07 11:58] LABS: Hematocrit 37.5 % (37.0-47.0); Hemoglobin 12.8 g/dL (12.0-16.0); Mean Corp Hgb Conc. 34.1 g/dL (33.0-37.0); Mean Corpuscular Volume 92.6 fL (81.0-99.0); Nucleated Red Blood Cells % 0 %; Platelet Count 186 10^3/uL (130-400); Red Cell Dist. Width 12.0 % (11.5-14.5)
[2024-12-07 12:16] LABS: D-Dimer < 0.27 ug/mlFEU (0.00-0.50)
[2024-12-07 12:19] LABS: Iron 84 ug/dl (37-170)
[2024-12-07 12:31] LABS: Total Iron Binding Capacity 296 ug/dl (265-497)
[2024-12-07 12:58] LABS: Ferritin 18.3 ng/ml (11.1-264.0)
[2024-12-10 00:41] LABS: Beta-2-Glycoprotein I Ab. IgG <10 SGU (<=20); Beta-2-Glycoprotein I Ab. IgM <10 SMU (<=20)
[2024-12-10 11:14] LABS: Protein S Total Antigen 116 % (63-126)
== END ==
LOC: REG 11:17
PROVIDERS: ATTENDING PHYSICIAN Internal Medicine Hematology & Oncology; FAMILY PHYSICIAN Family Medicine
DX: I82.402 Acute embolism and thrombosis of unspecified deep veins of left lower extremity (principal)
CPT/HCPCS: 36415; 81240; 81241; 82728; 83540; 83550; 85025; 85300; 85305; 85379; 85610; 85613; 85730; 86146; 86147

== ENCOUNTER → 2025-01-29 11:58 | Outpatient (REF) | payer MEDICARE, OTHER, SELFPAY ==
[2025-01-29 13:01] LABS: D-Dimer 0.28 ug/mlFEU (0.00-0.50)
== END ==
LOC: REG 11:58
PROVIDERS: ATTENDING PHYSICIAN Internal Medicine Hematology & Oncology; FAMILY PHYSICIAN Family Medicine
DX: I82.402 Acute embolism and thrombosis of unspecified deep veins of left lower extremity (principal)
CPT/HCPCS: 36415; 85379

== ENCOUNTER 2025-02-08 02:21 | Emergency (ER) | payer MEDICARE, SELFPAY ==
[2025-02-08 02:23] VITALS: BP 149/85
[2025-02-08 03:27] VITALS: BMI 33.5
[2025-02-08 03:29] VITALS: BP 152/99
[2025-02-08 04:00] VITALS: BP 160/87
[2025-02-08 04:40] LABS: ALT (SGPT) 29 U/L (0-35); AST (SGOT) 21 U/L (14-36); Albumin 4.2 g/dl (3.5-5.0); Alkaline Phosphatase 64 U/L (38-126); Blood Urea Nitrogen 16 mg/dl (7-17); Calcium 9.4 mg/dl (8.4-10.2); Carbon Dioxide 31 mmol/L (22-30); Chloride 105 mmol/L (98-107); Estimated Creatinine Clearance 80 ml/min; Glucose 77 mg/dl (70-99); Lipase 112 U/L (23-300); Potassium 3.9 mmol/L (3.5-5.1); Sodium 140 mmol/L (135-145); Total Protein 6.7 g/dl (6.3-8.2); eGFR > 60.00
[2025-02-08 04:44] LABS: D-Dimer 0.47 ug/mlFEU (0.00-0.50)
[2025-02-08 04:52] LABS: Hematocrit 35.8 % (37.0-47.0); Hemoglobin 12.5 g/dL (12.0-16.0); Mean Corp Hgb Conc. 34.9 g/dL (33.0-37.0); Mean Corpuscular Volume 91.6 fL (81.0-99.0); Nucleated Red Blood Cells % 0 %; Platelet Count 192 10^3/uL (130-400); Red Cell Dist. Width 11.8 % (11.5-14.5)
[2025-02-08 05:00] VITALS: BP 164/92
[2025-02-08 05:11] LABS: Troponin I 0.013 ng/ml
[2025-02-08 06:00] VITALS: BP 159/92
--- NOTE | 2025-02-08 06:57 | ED.GENMED ---
History of Present Illness
General
Chief Complaint: Breathing Problem
Source: patient and previous hospital records
Exam Limitations: none
Time Seen by Provider: 02/08/25 04:03
Nursing documentation reviewed up to this point in time: agreed with
History of Present Illness
History of Present Illness:
This is a 59-year-old woman with history of hypertension, hyperlipidemia, COPD, anxiety who presents with shortness of breath that began yesterday, worsened today. She notes difficulty breathing feeling that she cannot catch her breath while at
work and has been using her albuterol inhaler 6 times over the past 2 days with only mild but temporary relief. She denies having a cough nor fever but reports a feeling that she cannot get enough oxygen. This evening she noticed some epigastric
discomfort.
She has history of left lower extremity DVT diagnosed in September, treated with 3-month course of Eliquis that was discontinued in December. Has been following with hematology, Dr. Lynn and reports normal D-dimer in December. She has had no return of
lower extremity pain nor edema. No recent travel.
She follows with food and nutrition professor, Dr. Reyes and has a call out to his office, awaiting a return call to schedule an appointment.
Past History
Past History
ED Past Medical History: COPD (Mild), CVA (TIA), HTN, Hypercholesterolemia, Psychiatric (Anxiety depression) and Other (Anemia)
ED Past Surgical History: Other (cataracts, Dental Implants)
Patient has exhibited threatening behavior?: No
PSI?: No
Social History
Tobacco: Former smoker
Alcohol: None
Drug: None
Personal: Single
Living: alone
Employment: Employed
Family History
Family History: Other (Noncontributory)
Phy Exam
Physical Exam
Physical Exam:
GENERAL: 59-year-old woman appears her stated age, awake and alert, pleasant, appears in no acute distress. No respiratory distress. Speaking in full sentences.
EYE: anicteric
NECK: Supple, nontender, no meningismus, no significant adenopathy. No JVD.
ENT: posterior pharynx is clear, oral mucosa is moist. TM clear b/l, nares patent.
CARDIAC: Regular rate and rhythm. no murmur.
LUNGS: Clear breath sounds bilaterally, no acute respiratory distress, no wheezes/rales/rhonchi
ABDOMEN: Soft, nondistended, without focal tenderness
NEUROLOGICAL: Alert and oriented x3, no focal neuro deficits.
SKIN: Warm and dry, normal color, skin intact. No rash.
MUSCULOSKELETAL: No C/C/E. peripheral pulses are full and equal b/l. No palpable tenderness.
PSYCH: Normal and appropriate interaction.
Scores
Heart Failure Risk
Heart Failure Risk Score: Not Applicable
Course
Orders/Labs/Results
Orders:
Orders
02/08/25 03:58
EKG [Electrocardiogram (*1)] Urgent
Reason for Study: Shortness of Breath
02/08/25 03:59
EKG- Treatment ONCE
02/08/25 04:00
Complete Blood Count/With Diff Urgent
Comprehensive Metabolic Panel Urgent
Lipase Urgent
Comment: ADDED
02/08/25 04:16
Add On- LAB Urgent
Tests Added?: lipase, BNP
02/08/25 04:23
D-Dimer Urgent
NT-proBNP Urgent
Comment: ADDED
Troponin I Urgent
02/08/25 05:11
CR Chest - 2 Views Urgent
Comment:
Reason For Exam: SOB
02/08/25 06:56
Dexamethasone [Decadron] 10 mg PO NOW STA
02/08/25 07:27
Dexamethasone [Decadron] 5 mg PO NOW STA
Abnormal Lab Results
02/08/25
04:00
RBC 3.91 L 10^6/uL
(4.20-5.40)
Hct 35.8 L %
(37.0-47.0)
MCH 32.0 H pg
(27.0-31.0)
MPV 11.2 H fL
(7.4-10.4)
Carbon Dioxide 31 H mmol/L
(22-30)
02/08/25 04:00
02/08/25 04:00
Vital Signs
Initial and Last Documented VS:
Initial Vital Signs
Temp Pulse Resp BP Pulse Ox
98.5 F 81 18 149/85 97
02/08/25 02:23 02/08/25 02:23 02/08/25 02:23 02/08/25 02:23 02/08/25 02:23
Last Documented Vital Signs
Temp Pulse Resp BP Pulse Ox
98.5 F 73 14 159/92 100
02/08/25 02:23 02/08/25 06:00 02/08/25 06:00 02/08/25 06:00 02/08/25 07:04
MDM/Problems Addressed
Differential Diagnosis Includes:
Concern for exacerbation of COPD, asthma exacerbation, ACS, CHF, panic attack, pneumonia, GERD, PE, hyperventilation syndrome.
MDM/Problems Addressed:
Acute shortness of breath
Overall appears comfortable. Lungs are clear to auscultation.
Somewhat similar complaint during ED visit October of this year. Unremarkable workup at that time.
EKG is unremarkable and unchanged from previous.
Labs thus far unremarkable. Will check troponin, BNP as well as a D-dimer. Depending on results will consider imaging.
Chronic conditions affecting care: COPD, Asthma, Psychiatric illness and Other (History of left lower extremity DVT September of this year.)
*Radiology
Radiology exam reviewed: preliminary read by ED provider (Chest x-ray is unremarkable. Unchanged from previous.)
*Pulse Oximetry
SaO2: 100
Oxygen Mode of Delivery: Room air
Patient hypoxic: no
*EKG
Interpreted by ED Provider?: Yes
Interpretation: normal
Comparison EKG: no changes (Unchanged from previous October 2024)
Rate: normal
Rhythm: sinus
[place]: normal axis
Interval: normal interval
QRS Pattern: normal QRS
Ischemia: no ischemia
*Mobile Lounge Driver Interpretation
Rate: normal
Interpretation: normal
Rhythm: sinus
*Critical Care Note
Total Time (30-74mins, 75-104mins- exclusive of procedures): Not Applicable
Update Note
Update Note:
Pt feeling improved
labs are reassuring. normal d-dimer, normal troponin as well a BNP
CXR unremarkable
I suspect mild exacerbation COPD as well as mild anxiety
will give a 1 time dose of decadron. Reports allergy to prednisone but has taken decadron without issue in the past
Recommend fu with PCP as well as food and nutrition professor
ED Attending Note
-
Portions of this chart may have been created with voice recognition software.� Occasional wrong word or��sound alike� substitutions may have occurred due to the inherent limitations of voice recognition software.
Discharge Plan
Departure
Patient Disposition: Home (Routine Discharge)
Date of Disposition: 02/08/25
Time of Disposition: 07:02
Patient with high blood pressure during this ER visit?: No
Condition: Good
Discharge Problem:
Shortness of breath, MILD EXACERBATION OF COPD
Instructions: Asthma, Adult (DC), Exacerbation of COPD (DC)
Prescriptions:
No Action
clonazepam 1 mg Tablet
1 mg PO BID PRN (Reason: anxiety)
Patient Comments:
09/27/2023, pt. took 3 tablets yesterday but it is normally BIDPRN.
acetaminophen [Tylenol Extra Strength] 500 mg Tablet
1,000 mg PO DAILYPRN PRN (Reason: mild pain)
olanzapine 15 mg Tablet
15 mg PO DAILY
rosuvastatin 40 mg Tablet
40 mg PO HS
Wegovy 0.5 mg/0.5 mL Pen Injector
1.7 mg SC WE@0800
lisinopril 30 mg Tablet
30 mg PO HS
ibuprofen 400 mg tablet
400 mg PO Q6H PRN (Reason: Pain) Qty: 30 0RF
ipratropium-albuterol 0.5 mg-3 mg(2.5 mg base)/3 mL solution for nebulization
3 ml inhalation QID PRN (Reason: shortness of breath) Qty: 90 0RF
doxycycline hyclate 100 mg capsule
100 mg PO BID Qty: 14 0RF
Eliquis 5 mg tablet
5 mg PO BID Qty: 74 0RF
Rx Instructions:
Take 10mg (2 tabs) PO BID x 7 days then 5mg PO BID
albuterol sulfate [Ventolin HFA] 90 mcg/actuation HFA aerosol inhaler
2 puff inhalation Q6H PRN (Reason: shortness of breath or wheezing) Qty: 8.5 0RF
Referrals:
Chato Hilario DO [Family Provider, Family Practice]
Edward Man MD [Active, Pulmonary Medicine] - Call in 1-3 days for appt
Interventions
Interventions:
*Risk Screen - Suicide Last Done: 02/08/25 02:27
*General Assessment Last Done: 02/08/25 02:27
*Neglect/Abuse Screening Last Done: 02/08/25 02:27
*ED- Fall Risk Assessment Last Done: 02/08/25 02:27
*ED COVID-19 Vaccine History Last Done: 02/08/25 02:27
*ED Influenza Vaccine History Last Done: 02/08/25 02:27
*Nursing Disposition Last Done: 02/08/25 07:44
ED- Cardiac Assessment Last Done: 02/08/25 03:30
ED- Pulmonary Assessment Last Done: 02/08/25 03:31
Discharge Date and Time
Discharge Date/Time: 02/08/25 07:46
Print Language: [place]
[2025-02-08] MEDS: DECADRON 5 MG PO (07:28)
== END 2025-02-08 07:46 | disposition home or self-care (01) ==
LOC: EMR 02:21
PROVIDERS: EMERGENCY PHYSICIAN Emergency Medicine; FAMILY PHYSICIAN Family Medicine
DX: J44.1 Chronic obstructive pulmonary disease with (acute) exacerbation (principal); E78.00 Pure hypercholesterolemia, unspecified; I10 Essential (primary) hypertension; Z86.718 Personal history of other venous thrombosis and embolism; Z86.73 Personal history of transient ischemic attack (TIA), and cerebral infarction without residual deficits; Z87.891 Personal history of nicotine dependence
CPT/HCPCS: 99285; 71046; 80053; 83690; 83880; 84484; 85025; 85379; 93005

== ENCOUNTER → 2025-02-26 12:34 | Outpatient (REF) | payer MEDICARE, SELFPAY ==
[2025-02-26 13:31] LABS: D-Dimer 0.54 ug/mlFEU (0.00-0.50)
== END ==
LOC: REG 12:34
PROVIDERS: ATTENDING PHYSICIAN Internal Medicine Hematology & Oncology
DX: I82.402 Acute embolism and thrombosis of unspecified deep veins of left lower extremity (principal)
CPT/HCPCS: 36415; 85379

== ENCOUNTER → 2025-03-26 08:49 | Outpatient (REF) | payer MEDICARE, OTHER, SELFPAY ==
[2025-03-26 09:56] LABS: D-Dimer 0.50 ug/mlFEU (0.00-0.50)
== END ==
LOC: REG 08:49
PROVIDERS: ATTENDING PHYSICIAN Internal Medicine Hematology & Oncology; FAMILY PHYSICIAN Family Medicine
DX: I82.402 Acute embolism and thrombosis of unspecified deep veins of left lower extremity (principal)
CPT/HCPCS: 36415; 85379